=== PATIENT | male | born 1995 | race African-American/Black ===

== ENCOUNTER 2025-01-13 23:11 | Emergency (ER) | payer SELFPAY ==
--- NOTE | ~2025-01-13 | XR_ITS ---
Portable chest x-ray Comparison: None Clinical History: Shortness of breath Findings: Lungs are clear, without focal consolidation or pleural effusion. Cardiomediastinal silho uette is unremarkable. Bones and soft tissues are unremarkable. Impression: Normal chest. Reviewed, dictated and finalized at location . Impression: Normal chest.
[2025-01-13 23:21] VITALS: BP 133/98; PULSE 90; RESP 13; O2SAT 100
--- NOTE | 2025-01-13 23:23 | ED_ITS ---
HPI - General Adult General Chief complaint: Unspecified Stated complaint: SOB, tight in my throat. Time Seen by Provider: 01/13/25 23:19 Source: patient Mode of arrival: ambulatory Limitations: no limitations History of Present Illness HPI narrative: This is a 29-year-old male who presents to the ED for chief complaint of shortness of breath beginning about 2 hours prior to arrival. Patient states that it feels tight in his throat which was concerning to him. States it feels like his throat is closing. Denies any rash or history of allergies. Endorses chest tightness does central chest and pleuritic pain with breathing. Denies recent illness. Denies fevers, chills, leg swelling, palpitations, recent surgery or hospitalization. Denies any other medical history. Related Data Allergies Allergy/AdvReac Type Severity Reaction Status Date / Time No Known Allergies Allergy Verified 01/13/25 23:29 Review of Systems 2 Review of Systems: All systems as dictated in HPI Exam 2 Narrative: GENERAL: Well-appearing, well-nourished, and in no acute distress. HEAD: Normocephalic, atraumatic. EYES: PERRLA and EOMI. ENT: Nares clear, no rhinorrhea or epistaxis. Mucous membranes moist. Oropharynx without tonsillar hypertrophy exudate or other lesions. NECK: Supple. No adenopathy or masses. CHEST: No respiratory distress. Clear to auscultation. No wheezes rales or rhonchi HEART: Regular rate and rhythm. No murmur heard. Normal peripheral pulses. ABDOMEN: Soft, nontender, nondistended, normal active bowel sounds. MSK: Normal range of motion. No edema. SKIN: Warm, dry, no rash. NEURO: Alert and oriented x4. No focal deficits. PSYCH: Normal mood and affect. Course Vital Signs Vital signs: Vital Signs Temperature 98.1 F 01/13/25 23:26 Pulse Rate 86 01/13/25 23:26 Respiratory Rate 16 01/13/25 23:26 Blood Pressure 133/98 H 01/13/25 23:26 Pulse Oximetry 100 01/13/25 23:26 Oxygen Delivery Room Air 01/13/25 23:26 Temperature 98.1 F 01/13/25 23:26 Pulse Rate 86 01/13/25 23:26 Respiratory Rate 16 01/13/25 23:26 Blood Pressure 133/98 H 01/13/25 23:26 Pulse Oximetry 100 01/13/25 23:26 Oxygen Delivery Room Air 01/13/25 23:26 Medical Decision Making MDM Narrative Medical decision making narrative: This is a 29-year-old male who presents to the ED for chief complaint of shortness of breath, cough and chest tightness. Vitals are normal. Physical exam is benign. Lab work lab work is unremarkable. EKG shows normal sinus rhythm. Chest x-ray shows no acute cardiopulmonary findings. Presentation most likely consistent with bronchitis versus pleurisy. Rx for Medrol Dosepak albuterol prescription given. Encouraged to take ibuprofen every 6 hours as needed for pain control. Patient will be discharged in stable condition. Supportive measures discussed and return precautions given. Patient is understanding and agreeable with plan for discharge with PCP follow-up. Vital Signs Vital Signs: Vital Signs Temperature 98.1 F 01/13/25 23:26 Pulse Rate 86 01/13/25 23:26 Respiratory Rate 16 01/13/25 23:26 Blood Pressure 133/98 H 01/13/25 23:26 Pulse Oximetry 100 01/13/25 23:26 Oxygen Delivery Room Air 01/13/25 23:26 Temperature 98.1 F 01/13/25 23:26 Pulse Rate 86 01/13/25 23:26 Respiratory Rate 16 01/13/25 23:26 Blood Pressure 133/98 H 01/13/25 23:26 Pulse Oximetry 100 01/13/25 23:26 Oxygen Delivery Room Air 01/13/25 23:26 Lab Data 01/13/25 23:51 01/13/25 23:51 Labs: Lab Results 01/13/25 Range/Units 23:51 WBC 6.1 (4.5-10.0) K/mm3 RBC 5.09 (4.6-6.20) M/mm3 Hgb 14.3 (14.0-18.0) g/dL Hct 42.7 (42.0-52.0) % MCV 83.9 (80-100) fl MCH 28.1 (26-34) pg MCHC 33.5 (32-36) g/dl RDW 13.1 (11.5-14.5) % Plt Count 321 (150-375) k/mm3 MPV 9.3 (7.4-10.4) fl Immature Gran % (Auto) 0.5 (0-0.5) % Neut % (Auto) 58.0 (45.5-73.1) % Lymph % (Auto) 31.3 (18.3-44.2) % Nelson % (Auto) 6.9 (2.6-8.5) % Eos % (Auto) 2.6 (0-4.4) % Baso % (Auto) 0.7 (0.2-1.2) % Lymph # (Auto) 1.91 (0.9-3.2) K/mm3 Nelson # (Auto) 0.4 (0.1-0.6) K/mm3 Eos # (Auto) 0.2 (0-0.3) K/mm3 Baso # (Auto) 0.0 (0.0-0.1) K/mm3 Abs Immat Gran (auto) 0.03 (0.00-0.031) K/mm3 Absolute Neuts (auto) 3.5 (1.3-6.7) K/mm3 Absolute Nucleated RBC 0.000 (0.0-0.012) K/mm3 Nucleated RBC % 0.0 (0.0-0.2) % Sodium 140 (137-145) mmol/L Potassium 3.6 (3.4-5.0) mmol/L Chloride 101 (98-107) mmol/L Carbon Dioxide 26 (22-30) mmol/L Anion Gap 13 H (4-12) mmol/L BUN 10 (9-20) mg/dL Creatinine 0.94 (0.7-1.3) mg/dL Estim Creat Clear Calc 89 ml/min Estimated GFR > 60 (59 - ) Glucose 86 (65-110) mg/dL Calcium 9.5 (8.4-10.2) mg/dL Total Bilirubin 0.5 (0.2-1.3) mg/dL AST 26 (17-59) U/L ALT 19 (6-50) U/L Alkaline Phosphatase 79 (38-126) U/L Total Protein 8.0 (6.3-8.2) g/dL Albumin 4.7 (3.5-5.1) g/dL ECG Data EKG #1: ECG completion date: 01/13/25 ECG completion time: 23:50 Prior ECG tracings: not available for review Interpretation: Sinus rhythm Rate 83 QTC normal Benign early repolarization noted No acute ischemic findings Discharge Plan Discharge Clinical Impression: Bronchitis Patient Disposition: Home, Self-Care Condition: Stable Instructions: Antibiotic Form Additional Instructions: Exam and imaging today are reassuring. This is probably more related to bronchitis. Please take steroid pack and albuterol inhaler as needed. Follow- up with PCP on this issue. If you have any new or worsening symptoms please return to the ER for further evaluation. Patient Language: Ivorian Prescriptions: New methylprednisolone [Medrol (Jurgen)] 4 mg tablets,dose pack See Rx Instructions .ROUTE .COMPLEX Qty: 21 0RF Rx Instructions: for 6 days albuterol sulfate 90 mcg/actuation aerosol powdr breath activated 2 inh inhalation Q4-6H PRN (Reason: shortness of breath or wheezing) Qty: 1 0RF Follow-up/Referrals: PHYSIC[facility] [Primary Care Provider] - Time of Disposition: 00:42
--- NOTE | 2025-01-13 23:25 | ECG_ITS ---
Test Date: 2025-01-13 23:50:32 Measurements Intervals [place] Rate: 83 P: 69 AR: 168 QRS: 81 QRSD: 101 T: 47 QT: 366 QTc: 432 Interpretive Statements SINUS RHYTHM BORDERLINE T WAVE ABNORMALITY- INFERIOR LEADS BASELINE ARTIFACT- I, II, III, AVR, AVF, V1-V6 BORDERLINE ECG No previous ECG available for comparison Electronically Signed On 01-14-2025 06:22:51 CDT by Charli Cruz D.O.
[2025-01-13 23:26] VITALS: BP 133/98; PULSE 86; RESP 16; TEMP 36.7; O2SAT 100
[2025-01-13 23:32] VITALS: BP 133/85; PULSE 80; RESP 17
--- OUTSIDE RECORDS SUMMARY | 2025-01-13 23:35 | XMS_ITS | Referral Summary ---
Author Organization [facility] Address [address] [place] [address] Care Team Providers Care Bung Driver Name Role Phone No, Physician Primary Care Provider [phone] Encounters Date Type Department Care Team Description 01/01/2025 Results Follow-Up [facility] Emergency Department [address] [place] [phone] Jerome Ruiz RN 01/01/2025 8:21 AM CDT - 01/01/2025 9:37 AM CDT Emergency [facility] Emergency Department [address] [place] [phone] Sean Gonzales MD Skin irritation (Primary Dx); Acute maxillary sinusitis, recurrence not specified Discharge Disposition: Discharge to home or self care 12/30/2024 Results Follow-Up [facility] Emergency Department [address] [place] [phone] Jerome Ruiz RN 12/30/2024 2:22 AM CDT - 12/30/2024 7:44 AM CDT Emergency [facility] Emergency Department [address] [place] [phone] Discharge Disposition: Left without being seen 12/21/2024 9:06 AM CDT - 12/21/2024 11:05 AM CDT Emergency [facility] Emergency Department [address] [place] [phone] Constipation, unspecified constipation type (Primary Dx); Epigastric pain Discharge Disposition: Discharge to home or self care from Last 3 Months Allergies No known active allergies Medications acetaminophen (TYLENOL) 325 mg tablet Take 650 mg by mouth every 4 (four) hours as needed 7 Active albuterol HFA (PROVENTIL HFA,VENTOLIN HFA,PROAIR HFA) 90 mcg/actuation inhaler Inhale 2 puffs every 4 (four) hours as needed for wheezing 18 g 3 Active benzonatate (TESSALON) 100 mg capsuleIndicati ons:Cough Take 1 capsule (100 mg total) by mouth 3 (three) times a day as needed for cough 15 capsule 3 Active ibuprofen (ADVIL,MOTRIN) 600 mg tabletIndicatio ns:Pain Take 1 tablet (600 mg total) by mouth every 6 (six) hours as needed for pain 20 tablet 3 Active cetirizine (ZyrTEC) 10 mg tabletIndicatio ns:Allergic Rhinitis Take 1 tablet (10 mg total) by mouth daily 30 tablet 3 Active famotidine (PEPCID) 20 mg tablet Take 1 tablet (20 mg total) by mouth 2 (two) times a day 60 tablet 5 01/21/20 25 Active magnesium citrate solution Take 296 mL by mouth once for 1 dose 296 mL 5 Active cephalexin (KEFLEX) 500 mg capsule Take 1 capsule (500 mg total) by mouth 3 (three) times a day for 5 days 15 capsule 5 01/07/20 25 Active Problems Problem Noted Date Diagnosed Date Chronic sinusitis 07/24/2023 Chronic intractable headache 07/24/2023 Neurosyphilis in adult 12/27/2021 Assessment & Plan (12/31/2021 1:38 PM CDT): Presenting with persistent generalized headache, photophobia and blurred vision. Symptoms reportedly stable since prior admissions at OSH in November-December 2021 where he was incompletely treated with IV penicillin and left AMA x2. - RPR positive, 1:32. 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 Symptoms reportedly stable since prior admissions at OSH in November-December 2021 where he was incompletely treated with IV penicillin and left AMA x2. - RPR positive, 1:32. HIV negative - IV PCN G 4mil units q4h discontinued per ID, ordered first dose of 2.4 million units Bicillin. 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 Symptoms reportedly stable since prior admissions at OSH in November-December 2021 where he was incompletely treated with IV penicillin and left AMA x2. - RPR positive, 1:32. HIV negative - continue IV PCN G 4mil units q4h x 14 days - Counseled on importance of staying inpatient to complete treatment. Not candidate for OPAT as he is homeless and active history of illicit drug abuse. - ID consulted-- LP today, if patient leaves AMA give doxycycline 200 mg BID for 28 days, labs and Tdap vaccine ordered - Ophthalmology consult-- no signs of ocular syphilis on exam Assessment & Plan (12/28/2021 4:17 PM CDT): Presenting with persistent generalized headache, photophobia and blurred vision. Symptoms reportedly stable since prior admissions at OSH in November-December 2021 where he was incompletely treated with IV penicillin and left AMA x2. - RPR positive, 1:32. HIV negative - continue IV PCN G 4mil units q4h - Counseled on importance of staying inpatient to complete treatment. Not candidate for OPAT as he is homeless and active history of illicit drug abuse. - ID consulted-- LP ordered, if patient leaves AMA give doxycycline 200 mg BID for 28 days, labs ordered - Ophthalmology consult-- no signs of ocular syphilis on exam Polysubstance dependence inc luding opioid type drug without complication, episodic abuse 12/27/2021 Assessment & Plan (12/31/2021 1:39 PM CDT): History of fentanyl and methamphetamine use. He denies history of IVDU. States that he snorts fentanyl. Reported last use ~2 days prior to admission - UDS positive for amphetamine, cocaine, and fentanyl - Psych consult for withdrawal symptoms - Suboxone 8- q12h, SW for EPICC consult-- has appointment for suboxone at [facility] today, CM set up transportation - clonidine, atarax, loperamide prn Assessment & Plan (12/30/2021 5:25 PM CDT): History of fentanyl and methamphetamine use. He denies history of IVDU. States that he snorts fentanyl. Reported last use ~2 days prior to admission - UDS positive for amphetamine, cocaine, and fentanyl - Psych consult for withdrawal symptoms - Suboxone 8- q12h, SW for EPICC consult-- has appointment for suboxone at [facility] tomorrow morning, CM planning to set up transportation - clonidine, atarax, loperamide prn Assessment & Plan (12/29/2021 3:18 PM CDT): History of fentanyl and methamphetamine use. He denies history of IVDU. States that he snorts fentanyl. Reported last use ~2 days prior to admission - UDS positive for amphetamine, cocaine, and fentanyl - Psych consult for withdrawal symptoms - Suboxone 8- q12h, Narcan intranasal spray on discharge, SW for EPICC consult - clonidine, atarax, loperamide prn Assessment & Plan (12/28/2021 4:22 PM CDT): History of fentanyl and methamphetamine use. He denies history of IVDU. States that he snorts fentanyl. Reported last use ~2 days prior to admission - UDS positive for amphetamine, cocaine, and fentanyl - Psych consult for withdrawal symptoms - Suboxone 8- q12h, [facility] consult closer to discharge, Narcan intranasal spray on discharge - clonidine, atarax, loperamide prn Microcytic anemia 12/27/2021 Assessment & Plan (12/31/2021 1:38 PM CDT): - Hgb 11.1, MCV 80.4 on admission - Trend CBC, transfuse for Hgb <7 Assessment & Plan (12/30/2021 5:20 PM CDT): - Hgb 11.1, MCV 80.4 on admission - Trend CBC, transfuse for Hgb <7 Assessment & Plan (12/29/2021 3:16 PM CDT): - Hgb 11.1, MCV 80.4 on admission - Trend CBC, transfuse for Hgb <7 Assessment & Plan (12/28/2021 4:14 PM CDT): - Hgb 11.1, MCV 80.4 - Trend CBC, transfuse for Hgb <7 Diarrhea 12/27/2021 Assessment & Plan (12/31/2021 1:38 PM CDT): Patient reportedfrequent diarrhea on admission. Likely symptom of opiate withdrawal. Resolved. - bowel regimen started for reported constipation - stool culture and O&P (states worms in stool) pending Assessment & Plan (12/30/2021 5:20 PM CDT): Patient reportedfrequent diarrhea on admission. Likely symptom of opiate withdrawal. Resolved. - Patient reports no BM since arrival- bowel regimen started - stool culture, O&P (states worms in stool) Assessment & Plan (12/29/2021 3:16 PM CDT): Patient reporting frequent diarrhea. Likely symptom of opiate withdrawal, but also at risk of c diff given recent exposure to IV antibiotics. - Patient reports no BM since arrival - Check C diff, stool culture, O&P (states worms in stool) - If infectious studies negative, can treat symptomatically if needed Assessment & Plan (12/27/2021 8:47 PM CDT): Patient reporting frequent diarrhea. Likely symptom of opiate withdrawal, but also at risk of c diff given recent exposure to IV antibiotics. 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 Assessment & Plan (12/31/2021 1:37 PM CDT): Complains of having worms in his stool - stool O&P pending, per nursing no worms noted while sending sample Assessment & Plan (12/30/2021 5:18 PM CDT): Complains of having worms in his stool - Check stool O&P - can consider psychiatry consult if persists Assessment & Plan (12/29/2021 3:15 PM CDT): Complains of having worms in his stool - Check stool O&P - can consider psychiatry consult if persists Assessment & Plan (12/27/2021 8:47 PM CDT): Complains of having worms in his stool - Check stool O&P - can consider psychiatry consult if persists Homelessness 12/27/2021 Assessment & Plan (12/31/2021 1:38 PM CDT): - consult, appreciate assistance Assessment & Plan (12/30/2021 5:20 PM CDT): - consult, appreciate assistance Assessment & Plan (12/29/2021 3:16 PM CDT): - SW consult, appreciate assistance Assessment & Plan (12/27/2021 8:48 PM CDT): - consult, appreciate assistance Fentanyl use disorder, severe, dependence 2021 Methamphetamine use disorder, moderate Dental abscess 03/06/2017 Facial cellulitis 03/06/2017 Immunizations Immunization Administration Dates Next Due DTP 03/26/1996 Hep B, Adolescent or Pediatric 07/15/1997 Polio, Unspecified 03/26/1996 Tdap 12/29/2021,05/30/2009 Social History Tobacco Use Types Packs/Day Years Used Date Smoking Tobacco: Every Day Cigarettes Smokeless Tobacco: Current Tobacco Cessation:Ready to Q uit: No AUDIT-C Answer Date Recorded Q1: How often do you have a drink containing alc ohol? Monthly or less 12/27/2021 Average Number of Drinks Not on file 022 Frequency of Binge Drinking Not on file 12/09 Personal Safety Answer Date Recorded Have you ever been in or are you currently in a harmful physical or emotional relationship or is someone making you feel afraid or unsafe? Denies 01/01/2025 Sex and Gender Information Value Date Recorded Sex Assigned at Not on file Legal Sex Male 8:55 AM [employer] Gender Identity Not on file Sexual Orientation Not on file Last Filed Vital Signs Vital Sign Reading Time Taken Comments Blood Pressure 125/86 01/01/2025 7:11 AM CDT Pulse 93 01/01/2025 7:11 AM CDT Temperature 36.9 C (98.4 F) 01/01/2025 7:11 AM CDT Respiratory Rate 19 01/01/2025 7:11 AM CDT Oxygen Saturation 98% 01/01/2025 7:11 AM CDT Inhaled Oxygen Concentration - - Weight 68.9 kg (152 lb) 01/01/2025 7:11 AM CDT Height 180.3 cm (5' 11 ) 01/01/2025 7:11 AM CDT Body Mass Index 21.2 01/01/2025 7:11 AM CDT Plan of Treatment Not on file Procedures Procedure Name Priority Date/Time Associated Diagnosis Comments DIFFERENTIAL AUTO STAT 01/01/2025 9:0 2 AM CDT CBC WITH AUTO DIFFERENTIAL STAT 01/01/2025 9:02 AM CDT ECG 12-LEAD STAT 12/30/2024 3:33 AM CDT XR CHEST PA LATERAL 2 VIEWS ED 12/30/2024 2:57 AM CDT XR KUB ED 12/21/2024 10:21 AM CDT EGFR STAT 12/21/2024 9:19 AM CDT DIFFERENTIAL AUTO STAT 12/21/2024 9:1 9 AM CDT COMPREHENSIVE METABOLIC PANEL STAT 12/21/2024 9:19 AM CDT CBC WITH AUTO DIFFERENTIAL STAT 12/21/2024 9:19 AM CDT HEPATITIS PANEL, ACUTE Routine 6:56 AM CDT from Last 3 Months or Most Recently Relevant to Health Maintenance Results * Differential, auto (01/01/2025 9:02 AM CDT) Pathologist [facility] Neutrophil abs 2.6 1.5 - 6.5 K/cumm Imm gran abs 0.0 0.0 - 0.1 K/cumm [facility] Lymphocyte abs 1.2 0.8 - 3.3 K/cumm [facility] Monocyte abs 0.6 0.2 - 0.8 K/cumm [facility] Eosinophil abs 0.2 0.0 - 0.5 K/cumm [facility] Basophil abs 0.0 0.0 - 0.1 K/cumm [facility] Neutrophil pct 55.9 % [facility] Comment: Interpretive Data Percent cell count reference ranges are not reported, since discordance with absolute values may lead to misinterpretation of CBC data. Current Interpretive Data was last revised on 2018. Imm gran pct 0.2 % [facility] Comment: Interpretive Data Percent cell count reference ranges are not reported, since discordance with absolute values may lead to misinterpretation of CBC data. Current Interpretive Data was last revised on 2018. Lymphocyte pct 25.8 % [facility] Comment: Interpretive Data Percent cell count reference ranges are not reported, since discordance with absolute values may lead to misinterpretation of CBC data. Current Interpretive Data was last revised on 2018. Monocyte pct 13.4 % [facility] Comment: Interpretive Data Percent cell count reference ranges are not reported, since discordance with absolute values may lead to misinterpretation of CBC data. Current Interpretive Data was last revised on 2018. Eosinophil pct 4.3 % [facility] Comment: Interpretive Data Percent cell count reference ranges are not reported, since discordance with absolute values may lead to misinterpretation of CBC data. Current Interpretive Data was last revised on 2018. Basophil pct 0.4 % [facility] Comment: Interpretive Data Percent cell count reference ranges are not reported, since discordance with absolute values may lead to misinterpretation of CBC data. Current Interpretive Data was last revised on 2018. Blood 01/01/2025 9:02 AM CDT 01/01/2025 9:08 AM CDT us Sean Gonzales MD LAB BLOOD ORDERABLES Final Res ult [facility] Department [place] [address] * (ABNORMAL) CBC with auto differential (01/01/2025 9:02 AM CDT) WBC 4.6 3.8 - 9.9 K/cumm Hgb 13.1 13.0 - 17.5 g/dL [facility] Hct 38.2(L) 38.9 - 50.3 % [facility] Plt 274 150 - 400 K/cumm [facility] MPV 10.1 9.1 - 12.3 fL [facility] RBC 4.64 4.30 - 5.80 M/cumm [facility] MCV 82.3 81.3 - 96.4 fL [facility] MCH 28.2 27.1 - 33.3 pg [facility] MCHC 34.3 32.3 - 35.7 g/dL [facility] RDW CV 13.7 11.1 - 14.9 % [facility] RDW SD 40.6 35.7 - 48.1 fL [facility] NRBC abs 0.00 0.00 - 0.01 K/cumm [facility] Blood 01/01/2025 9:02 AM CDT 01/01/2025 9:08 AM CDT us Sean Gonzales MD LAB BLOOD ORDERABLES Final Res ult Performing Organization Address [facility] Co de Phone Number [facility] Department [place] [address] * ECG 12-LEAD (12/30/2024 3:33 AM CDT) Narrative [facility] - 12/30/2024 3:33 AM CDT Bhavani Leigh MD 12/30/2024 3:33 AM ECG 12 lead Date/Time: 12/30/2024 3:33 AM Performed by: Bhavani Leigh MD Authorized by: Bhavani Leigh MD Rate: ECG rate: 99 ECG rate assessment: normal Rhythm: Rhythm: sinus rhythm Ectopy: Ectopy: none QRS: QRS axis: Normal QRS intervals: Normal Conduction: Conduction: normal ST segments: ST segments: Normal T waves: T waves: non-specific Previous ECG: Previous ECG: Compared to current Similarity: No change Interpretation: Interpretation: No significant change Recommended Follow-up: Recommended follow up: further workup in the ED us Bhavani Leigh MD ECG ORDERABLES Final Resul t Performing Organization Address [facility] Co de Phone Number [facility] * XR Chest Pa Lateral 2 Views (12/30/2024 2:57 AM CDT) Anatomical Region Laterality Modality Body, Chest N/A Computed Radiogr aphy 12/30/2024 4:15 AM CDT Impressions 12/30/2024 8:31 AM CDT Comparison made to chest radiograph 07/05/2023. Lungs are clear. No pleural effusion or pneumothorax. Normal cardiomediastinal silhouette. Dictated by: Maximilian Shepherd MD The radiology attending physician has personally reviewed this study, and had reviewed and/or edited this written report and agrees with it. Electronically signed by: Jone Jones M.D. Narrative 12/30/2024 8:31 AM CDT EXAMINATION: 2 view chest radiograph Procedure Note Jone Jones MD - 12/30/2024 EXAMINATION: 2 view chest radiograph IMPRESSION: Comparison made to chest radiograph 07/05/2023. Lungs are clear. No pleural effusion or pneumothorax. Normal cardiomediastinal silhouette. Dictated by: Maximilian Shepherd MD The radiology attending physician has personally reviewed this study, and had reviewed and/or edited this written report and agrees with it. Electronically signed by: Jone Jones M.D. us Ashlee Pedroza MD IMG XR PROCEDURES Final Res ult * XR Kub (Abd 1 View) (12/21/2024 10:21 AM CDT) Anatomical Region Laterality Modality Body, Abdomen N/A Computed Radiogr aphy 12/21/2024 10:3 7 AM CDT Impressions 12/21/2024 10:37 AM CDT The bowel gas pattern is normal. Imaged lung bases are clear. Electronically signed by: Ermelinda Freire M.D. Narrative 12/21/2024 10:37 AM CDT EXAMINATION: Abdomen, one view. HISTORY: Constipation COMPARISON: None Procedure Note Ermelinda Freire MD - 12/21/2024 EXAMINATION: Abdomen, one view. HISTORY: Constipation COMPARISON: None IMPRESSION: The bowel gas pattern is normal. Imaged lung bases are clear. Electronically signed by: Ermelinda Freire M.D. us hCuck Calvert NP IMG XR PROCEDURES Final R esult * eGFR (12/21/2024 9:19 AM CDT) eGFR >90 >=60 mL/min/1. 73 m2 Comment: Interpretive Data Reference Interval Normal >/= 90 mL/min/1.73m2 Mildly decreased* 60 - 89 mL/min/1.73m2 Mildly to moderately decreased 45 - 59 mL/min/1.73m2 Moderately to severely decreased 30 - 44 mL/min/1.73m2 Severely decreased 15 - 29 mL/min/1.73m2 Kidney Failure < 15 mL/min/1.73m2 *Relative to young adult level Estimated glomerular filtration rate is determined by the 2020 CKD-EPI equation recommended by the National Kidney [employer] (A Unifying Approach to GFR Estimation: Recommendations of the NKF-ASK Task Force on Reassessing the Inclusion of Race in Diagnosing Kidney Disease, JASN 202). The CKD-EPI equation should not be used for patients with unstable renal function and has not been validated in children and those over 70. Current interpretive data was last reviewed 2021. Blood 12/21/2024 9:19 AM CDT 12/21/2024 9:34 AM CDT Chuck Calvert NP LAB BLOOD ORDERABLES Akiko bdeoya Result [facility] Department [place] [address] * Differential, auto (12/21/2024 9:19 AM CDT) Pathologist [facility] Neutrophil abs 2.9 1.5 - 6.5 K/cumm Imm gran abs 0.0 0.0 - 0.1 K/cumm [facility] Lymphocyte abs 1.3 0.8 - 3.3 K/cumm [facility] Monocyte abs 0.6 0.2 - 0.8 K/cumm [facility] Eosinophil abs 0.3 0.0 - 0.5 K/cumm [facility] Basophil abs 0.0 0.0 - 0.1 K/cumm [facility] Neutrophil pct 55.9 % [facility] Comment: Interpretive Data Percent cell count reference ranges are not reported, since discordance with absolute values may lead to misinterpretation of CBC data. Current Interpretive Data was last revised on 2018. Imm gran pct 0.2 % [facility] Comment: Interpretive Data Percent cell count reference ranges are not reported, since discordance with absolute values may lead to misinterpretation of CBC data. Current Interpretive Data was last revised on 2018. Lymphocyte pct 25.5 % [facility] Comment: Interpretive Data Percent cell count reference ranges are not reported, since discordance with absolute values may lead to misinterpretation of CBC data. Current Interpretive Data was last revised on 2018. Monocyte pct 12.4 % [facility] Comment: Interpretive Data Percent cell count reference ranges are not reported, since discordance with absolute values may lead to misinterpretation of CBC data. Current Interpretive Data was last revised on 2018. Eosinophil pct 5.2 % [facility] Comment: Interpretive Data Percent cell count reference ranges are not reported, since discordance with absolute values may lead to misinterpretation of CBC data. Current Interpretive Data was last revised on 2018. Basophil pct 0.8 % [facility] Comment: Interpretive Data Percent cell count reference ranges are not reported, since discordance with absolute values may lead to misinterpretation of CBC data. Current Interpretive Data was last revised on 2018. Blood 12/21/2024 9:19 AM CDT 12/21/2024 9:34 AM CDT us Chuck Calvert NP LAB BLOOD ORDERABLES Akiko l Result [facility] Department [place] [address] * CBC with auto differential (12/21/2024 9:19 AM CDT) WBC 5.2 3.8 - 9.9 K/cumm Hgb 13.1 13.0 - 17.5 g/dL [facility] Hct 38.9 38.9 - 50.3 % [facility] Plt 306 150 - 400 K/cumm [facility] MPV 9.9 9.1 - 12.3 fL [facility] RBC 4.75 4.30 - 5.80 M/cumm [facility] MCV 81.9 81.3 - 96.4 fL [facility] MCH 27.6 27.1 - 33.3 pg [facility] MCHC 33.7 32.3 - 35.7 g/dL [facility] RDW CV 13.2 11.1 - 14.9 % [facility] RDW SD 39.4 35.7 - 48.1 fL [facility] NRBC abs 0.00 0.00 - 0.01 K/cumm [facility] Blood 12/21/2024 9:19 AM CDT 12/21/2024 9:34 AM CDT us Chuck Calvert NP LAB BLOOD ORDERABLES Akiko bedoya Result [facility] Department [place] [address] * Comprehensive metabolic panel (12/21/2024 9:19 AM CDT) Sodium 142 135 - 145 mmol/L Potassium, pl 3.5 3.3 - 4.9 mmol/L [facility] Chloride 100 97 - 110 mmol/L [facility] CO2 31 22 - 32 mmol/L [facility] Anion gap 11 2 - 15 mmol/L [facility] BUN 10 6 - 25 mg/dL [facility] Creatinine 1.10 0.80 - 1.30 mg/dL [facility] Glucose 97 70 - 199 mg/dL [facility] Comment: Interpretive Data Fasting glucose >/= 126 mg/dl is diagnostic for diabetes. Fasting is defined as no caloric intake for at least 8 hours. Fasting glucose between 100 mg/dl to 125 mg/dl is diagnostic of prediabetes. In a patient with classic symptoms of hyperglycemia or hyperglycemic crisis, a random glucose >/= 200 mg/dl is diagnostic for diabetes. In the absence of unequivocal hyperglycemia, results should be confirmed by repeat testing. The classification and Diagnosis of Diabetes Diabetes Care 2021; 46: S19-S40. Current interpretive data was last revised 2022. Calcium 10.0 8.5 - 10.3 mg/dL [facility] Bilirubin, total 0.9 0.1 - 1.2 mg/dL [facility] Protein, pl 8.3 6.5 - 8.5 g/dL [facility] Albumin 4.8 3.5 - 5.0 g/dL [facility] Alk phos 86 40 - 130 Units/L [facility] ALT 22 7 - 55 Units/L [facility] AST 38 10 - 50 Units/L [facility] Blood 12/21/2024 9:19 AM CDT 12/21/2024 9:34 AM CDT Chuck Calvert NP LAB BLOOD ORDERABLES Akiko l Result Performing Organization Address [facility]/ZIP Co de Phone Number [facility] Department [place] [address] * Hepatitis panel, acute (12/28/2021 6:56 AM CDT) Hep A IgM Nonreactive Nonreactive [facility] Comment: Interpretive Data: If Hep A IgM Ab is reported as Equivocal, a new sample should be drawn in two weeks for testing. Current interpretive data was last revised on 19. Hep B core IgM Nonreactive Nonreactive [facility] Comment: Interpretive Data If HepB Core IgM Ab is reported as Equivocal, a new sample should be drawn in two weeks for testing. Current interpretive data was last revised on 19. Hep C Ab Nonreactive Nonreactive [facility] Comment:Antibodies to HCV no t detected. Does NOT exclude the possibility of recent exposure to HCV. HepBsAg Nonreactive Nonreactive [facility] Blood 12/28/2021 6:56 AM CDT 12/28/2021 7:02 AM CDT us Jerome Arredondo MD LAB MICROBIOL OGY - GENERAL ORDERABLES Edited Result - Final Performing Organization Address City/[facility]/ZIP Co de Phone Number [facility] Department [place] [address] from Last 3 Months or Most Recently Relevant to Health Maintenance Advance Directives For more information, please contact: [phone] * Full Code (Latest Code Status on File) Date Activated Date Inactivated Comments 12/28/2021 1:26 AM 12/31/2021 3:18 PM Care Teams Bung Driver Relationship Specialty Start Date End Date No, Physician PCP - General 12/27/21
--- OUTSIDE RECORDS SUMMARY | 2025-01-13 23:35 | XMS_ITS | Clinical Summary ---
Author Organization [facility] Address [address] [place] [address] Care Team Providers Care Integration Technician Name Role Phone No, Physician Primary Care Provider [phone] Allergies No known active allergies Medications acetaminophen [...] symptoms - Suboxone 8- q12h, SW for EPIC consult-- [facility] sub[facility]one at [facility] symptoms - Suboxone 8- q12h, SW for EPIC consult-- has appointment [facility] suboxone at [facility] [...] for withdrawal symptoms - Suboxone 8- q12h, EPICC consult closer to discharge, Narcan intranasal spray [...] & Plan (12/31/2021 1:38 PM CDT): - SW consult, appreciate assistance Assessment & Plan (12/30/2021 5:20 PM CDT): - SW consult, appreciate assistance Assessment & Plan (12/29/2021 3:16 PM CDT): - SW consult, appreciate assistance Assessment & Plan (12/27/2021 8:48 PM CDT): - SW consult, appreciate assistance Fentanyl use disorder, severe, dependence 2021 Methamphetamine use disorder, moderate Dental abscess 03/06/2017 Facial cellulitis 03/06/2017 Encounters Date Type Department Care Team Description 01/01/2025 8:21 AM CDT - 01/01/2025 9:37 AM CDT Emergency [facility] Emergency Department [address] [place] [address] Sean Gonzales MD Skin irritation (Primary Dx); Acute maxillary sinusitis, recurrence not specified Discharge Disposition: Discharge to home or self care 01/01/2025 Results Follow-Up [facility] Emergency Department [address] [place] [address] Jerome Ruiz RN 12/30/2024 2:22 AM CDT - 12/30/2024 7:44 AM CDT Emergency [facility] Emergency Department [address] [place] [address] Discharge Disposition: Left without being seen 12/30/2024 Results Follow-Up [facility] Emergency Department [address] [place] [address] Jerome Ruiz RN 12/21/2024 9:06 AM CDT - 12/21/2024 11:05 AM CDT Emergency [facility] Emergency Department [address] [place] [address] Constipation, unspecified constipation type (Primary Dx); Epigastric pain Discharge Disposition: Discharge to home or self care from Last 3 Months Immunizations Immunization Administration Dates Next Due DTP 03/26/1996 Hep B, Adolescent or Pediatric 07/15/1997 Polio, Unspecified 03/26/1996 Tdap 12/29/2021,05/30/2009 Medical History Medical History Date Comments Opiate abuse, episodic (HCC) Methamphetamine use (HCC) Neurosyphilis Social History Tobacco Use Types Packs/Day Years [...] on file Legal Sex Male 8:55 AM 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 Gender Identity Not on file Sexual Orientation Not on file Obstetrics History Last Filed Vital Signs Vital Sign Reading [...] 01/01/2025 7:11 AM CDT Plan of Treatment Health Maintenance Due Date Last Done Comments Depression Screening 1994 Varicella Vaccines (1 of 2 - 13+ 2-dose series) 12/20/2007 Regular Well Visit/Exam 18-64 2012 Pneumococcal vaccine <65 (1 of 2 - PCV) 2013 Influenza Vaccine (#1) 2024 DTaP/Tdap/Td Vaccine (5 - Td or Tdap) 01/17/2032 01/16/2022, 12/29/2021, 05/30/2009, Additional history exists Hepatitis B Screening Completed 07/15/1997 Hepatitis C Screening Completed 12/28/2021 HPV Vaccines Aged Out No longer eligi ble based on patient's age to complete this topic Procedures Procedure Name Priority Date/Time Associated Diagnosis [...] * Differential, auto (01/01/2025 9:02 AM CDT) Neutrophil abs 2.6 1.5 - 6.5 K/cumm Imm gran abs 0.0 0.0 - 0.1 K/cumm [facility] Lymphocyte abs 1.2 0.8 - 3.3 K/cumm [facility] Monocyte abs 0.6 0.2 - 0.8 K/cumm [facility] Eosinophil abs 0.2 0.0 - 0.5 K/cumm [facility] Basophil abs 0.0 0.0 - 0.1 K/cumm [facility] Neutrophil pct 55.9 % [facility] Comment: Interpretive Data Percent cell count reference ranges are not reported, since discordance with absolute values may lead to misinterpretation of CBC data. Current Interpretive Data was last revised on 2018. Imm gran pct 0.2 % [facility] Comment: Interpretive Data Percent cell count reference ranges are not reported, since discordance with absolute values may lead to misinterpretation of CBC data. Current Interpretive Data was last revised on 2018. Lymphocyte pct 25.8 % [facility] Comment: Interpretive Data Percent cell count reference ranges are not reported, since discordance with absolute values may lead to misinterpretation of CBC data. Current Interpretive Data was last revised on 2018. Monocyte pct 13.4 % [facility] Comment: Interpretive Data Percent cell count reference ranges are not reported, since discordance with absolute values may lead to misinterpretation of CBC data. Current Interpretive Data was last revised on 2018. Eosinophil pct 4.3 % [facility] Comment: Interpretive Data Percent cell count reference ranges are not reported, since discordance with absolute values may lead to misinterpretation of CBC data. Current Interpretive Data was last revised on 2018. Basophil pct 0.4 % [facility] Comment: Interpretive Data Percent cell count reference ranges are not reported, since discordance with absolute values may lead to misinterpretation of CBC data. Current Interpretive Data was last revised on 2018. Blood 01/01/2025 9:02 AM CDT 01/01/2025 9:08 AM CDT us Sean Gonzales MD LAB BLOOD ORDERABLES Final Res ult [facility] Department [place] [address] * (ABNORMAL) CBC with auto differential (01/01/2025 9:02 AM CDT) WBC 4.6 3.8 - 9.9 K/cumm Hgb 13.1 13.0 - 17.5 g/dL [facility] Hct 38.2(L) 38.9 - 50.3 % [facility] Plt 274 150 - 400 K/cumm [facility] MPV 10.1 9.1 - 12.3 fL [facility] RBC 4.64 4.30 - 5.80 M/cumm [facility] MCV 82.3 81.3 - 96.4 fL [facility] MCH 28.2 27.1 - 33.3 pg [facility] MCHC 34.3 32.3 - 35.7 g/dL [facility] RDW CV 13.7 11.1 - 14.9 % [facility] RDW SD 40.6 35.7 - 48.1 fL [facility] NRBC abs 0.00 0.00 - 0.01 K/cumm [facility] Blood 01/01/2025 9:02 AM CDT 01/01/2025 9:08 AM CDT us Sean Gonzales MD LAB BLOOD ORDERABLES Final Res ult [facility] Department [place] [address] * ECG 12-LEAD (12/30/2024 3:33 AM CDT) Narrative [facility] - 12/30/2024 3:33 AM CDT Bhavani Leigh [...] Leigh MD ECG ORDERABLES Final Resul t [facility] * XR Chest Pa Lateral 2 Views [...] Electronically signed by: Ermelinda Freire M.D. us Chuck Calvert NP IMG XR PROCEDURES Final R [...] NP LAB BLOOD ORDERABLES Akiko bedoya Result [facility] Department [place] [address] * Differential, auto (12/21/2024 9:19 AM CDT) Neutrophil abs 2.9 1.5 - 6.5 K/cumm Imm gran abs 0.0 0.0 - 0.1 K/cumm [facility] Lymphocyte abs 1.3 0.8 - 3.3 K/cumm [facility] Monocyte abs 0.6 0.2 - 0.8 K/cumm [facility] Eosinophil abs 0.3 0.0 - 0.5 K/cumm [facility] Basophil abs 0.0 0.0 - 0.1 K/cumm [facility] Neutrophil pct 55.9 % [facility] Comment: Interpretive Data Percent cell count reference ranges are not reported, since discordance with absolute values may lead to misinterpretation of CBC data. Current Interpretive Data was last revised on 2018. Imm gran pct 0.2 % [facility] Comment: Interpretive Data Percent cell count reference ranges are not reported, since discordance with absolute values may lead to misinterpretation of CBC data. Current Interpretive Data was last revised on 2018. Lymphocyte pct 25.5 % [facility] Comment: Interpretive Data Percent cell count reference ranges are not reported, since discordance with absolute values may lead to misinterpretation of CBC data. Current Interpretive Data was last revised on 2018. Monocyte pct 12.4 % [facility] Comment: Interpretive Data Percent cell count reference ranges are not reported, since discordance with absolute values may lead to misinterpretation of CBC data. Current Interpretive Data was last revised on 2018. Eosinophil pct 5.2 % [facility] Comment: Interpretive Data Percent cell count reference ranges are not reported, since discordance with absolute values may lead to misinterpretation of CBC data. Current Interpretive Data was last revised on 2018. Basophil pct 0.8 % [facility] Comment: Interpretive Data Percent cell count reference ranges are not reported, since discordance with absolute values may lead to misinterpretation of CBC data. Current Interpretive Data was last revised on 2018. Blood 12/21/2024 9:19 AM CDT 12/21/2024 9:34 AM CDT Chuck Jerome Calvert AUTOMOBILE MECHANIC RADIATOR LAB BLOOD ORDERABLES Akiko l Result Performing Organization Address [facility] de Phone Number [facility] Department [place] [address] * CBC with auto differential (12/21/2024 9:19 AM CDT) [facility] WBC 5.2 3.8 - 9.9 K/cumm Hgb 13.1 13.0 - 17.5 g/dL [facility] Hct 38.9 38.9 - 50.3 % [facility] Plt 306 150 - 400 K/cumm [facility] MPV 9.9 9.1 - 12.3 fL [facility] RBC 4.75 4.30 - 5.80 M/cumm [facility] MCV 81.9 81.3 - 96.4 fL [facility] MCH 27.6 27.1 - 33.3 pg [facility] MCHC 33.7 32.3 - 35.7 g/dL [facility] RDW CV 13.2 11.1 - 14.9 % [facility] RDW SD 39.4 35.7 - 48.1 fL [facility] NRBC abs 0.00 0.00 - 0.01 K/cumm [facility] Blood 12/21/2024 9:19 AM CDT 12/21/2024 9:34 AM CDT Chuck Calvert NP LAB BLOOD ORDERABLES Akiko l Result Performing Organization Address [facility] Co de Phone Number [facility] Department [place] [address] * Comprehensive metabolic panel (12/21/2024 9:19 AM CDT) [facility] Sodium 142 135 - 145 mmol/L Potassium, pl 3.5 3.3 - 4.9 mmol/L [facility] Chloride 100 97 - 110 mmol/L [facility] CO2 31 22 - 32 mmol/L [facility] Anion gap 11 2 - 15 mmol/L [facility] BUN 10 6 - 25 mg/dL [facility] Creatinine 1.10 0.80 - 1.30 mg/dL [facility] Glucose 97 70 - 199 mg/dL [facility] Comment: Interpretive Data Fasting glucose >/= 126 [...] classification and Diagnosis of Diabetes Diabetes Care 202; 46: S19-S40. Current interpretive data was last revised 2022. Calcium 10.0 8.5 - 10.3 mg/dL [facility] Bilirubin, total 0.9 0.1 - 1.2 mg/dL [facility] Protein, pl 8.3 6.5 - 8.5 g/dL [facility] Albumin 4.8 3.5 - 5.0 g/dL [facility] Alk phos 86 40 - 130 Units/L [facility] ALT 22 7 - 55 Units/L [facility] AST 38 10 - 50 Units/L [facility] Blood 12/21/2024 9:19 AM CDT 12/21/2024 9:34 AM CDT Chuck Calvert NP LAB BLOOD ORDERABLES Akiko l Result [facility] Department [place] [address] * Hepatitis panel, acute (12/28/2021 6:56 AM CDT) Hep A IgM Nonreactive Nonreactive [facility] Comment: Interpretive Data: If Hep A IgM Ab is reported as Equivocal, a new sample should be drawn in two weeks for testing. Current interpretive data was last revised on 19. Hep B core IgM Nonreactive Nonreactive [facility] Comment: Interpretive Data If HepB Core IgM Ab is reported as Equivocal, a new sample should be drawn in two weeks for testing. Current interpretive data was last revised on 19. Hep C Ab Nonreactive Nonreactive [facility] Comment:Antibodies to HCV no t detected. Does NOT exclude the possibility of recent exposure to HCV. HepBsAg Nonreactive Nonreactive [facility] Blood 12/28/2021 6:56 AM CDT 12/28/2021 7:02 AM CDT Jerome Arredondo MD LAB MICROBIOL OGY - GENERAL ORDERABLES Edited Result - Final [facility] Department [place] [address] from Last 3 Months or Most Recently Relevant to Health Maintenance Advance Directives For more information, please contact: [phone] * Full Code (Latest Code Status on File) Date Activated Date Inactivated Comments 12/28/2021 1:26 AM 12/31/2021 3:18 PM Care Teams Integration Technician Relationship Specialty Start Date End Date No, Physician PCP - General 12/27/21
--- OUTSIDE RECORDS SUMMARY | 2025-01-13 23:35 | XMS_ITS | Continuity of Care Document ---
Author Organization [facility] Address [address] [place] [address] Phone Care Team Providers Care Social Sciences Research Scientist Name Role Phone Management, Case Unavailable Unavailable Unavailable Unavailable Unavailable Allergies, Adverse Reactions, Alerts Substance Reaction Status Criticality No Known Allergies Active No Inform ation Medications Medication Instructions Dosage Effective Dates (start - stop) Status Comments clindamycin 300 mg capsule take 1 capsule by oral route three times daily for 10 days - Active ibuprofen 800 mg tablet take 1 tablet by oral route 3 times every day with food as needed for pain - Active chlorhexidine gluconate 0.12 % mouthwash place 15 milliliter by mucous membrane route 2 times every day in the mouth (after meals), swish in mouth for 30 seconds then spit out 15.00 milliliter - Active Procedures Procedure Date OFFICE/OUTPATIENT VISIT, [facility] Advance Directives Directive Yes / No Effective Date File Name No Information Encounters Encounter Description Practice Location Reason(s) For Visit Diagnoses Date Provider Providers Copied on Encounter Packet[facility] , [address], [place], [place], [id number], [place] tel:[phone] [place] [facility] [place] No Information Mar-0 3-201 7 Management Case. [address], [place], [place], [id number], . tel:[phone] Referring Provider: Suhas manning, [address], [place], [address] . tel:[phone] OFFICE/OUTPAT IENT VISIT, [facility] , [address], [place], [place], [id number], [place] tel:[phone] [facility] [place] Dental infection (chief complaint) Dental abscess w/o sinus 7 Shannen Dai. [address], [place], [place], [id number], [place]. tel:[phone] Referring Provider: Suhas Marinelli er, [address], [place], [address] . tel:[phone] Family History Family Member Type Diagnosis Age At Onset No Information Payers Payer name Insurance type Covered constitution party ID Authoriza tion(s) No Information Social History Type Description Quantity Date Captured Comments Alcohol Use Details Unknown Caffeine Use Details Unknown Tobacco Use Status No Information Smoking Status No Information Sex Male Chief Complaint And Reason For Visit No Information Reason For Referral Reason For Referral No Information History Of Present Illness Encounter Date Complaint History Of Prese nt Illness Dental infection Pt went to [facility] ER for right face swelling and pain. Diagnosed with dental infection. Needs rewrite of Cleocin and Motrin. C/o facial pain, headache and difficulty eating due to pain. Functional Status Date Functional Assessmen t No Information Instructions Date Instruction Additional Infor donny Cleocin, Motrin, kaden thwash prescribedInfo given about Dental Urgent Care -- urged patient to call today Related to Dental abscess w/o sinus Assessments Type Assessment Date No Information Patient Care Teams Name Effective Dates (start - stop) Status Members No Information
--- OUTSIDE RECORDS SUMMARY | 2025-01-13 23:35 | XMS_ITS | Encounter Summary ---
Author Organization [facility] Address [address] [place] [address] Phone Care Team Providers Care Media Developer Name Role Phone No, Physician Primary Care Provider [phone] Encounter Details Date Type Department Care Team (Late st Contact Info) Description 12/28/2021 Ophth Exam [facility] Ophthalmology [address] [place] [address] [address] [place] [id number] Felecia Lancaster MD [address] [place] [address] Social History Tobacco Use Types Packs/Day Years Used Date Smoking Tobacco: Every Day Cigarettes Smokeless Tobacco: Current AUDIT-C Answer Date Recorded Q1: How often do you have a drink containing alc ohol? 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 Gender Identity Not on file Sexual Orientation Not on file documented as of this encounter Plan of Treatment Not on file documented as of this encounter Visit Diagnoses Not on filedocumented in this encounter Additional Health Concerns Infection Onset Date Last Indicated Resolved Time COVID: Suspected 07/17/2022 07/17/2022 07/17/2022 1:11 AM CDT COVID: Suspected 10/20/2022 10/20/2022 10/20/2022 4:41 PM AIR BRAKE RIGGER Influenza, adult 10/20/2022 10/20/2022 10/27/2022 3:05 AM AIR BRAKE RIGGER COVID: Suspected 07/05/2023 07/05/2023 07/05/2023 7:55 PM CDT documented as of this encounter Eye Exam Visual Acuity Right eye Left eye Near sc 20/20 20/20 Tonometry (Tonopen, 2:00 AM) Right eye Left eye Pressure 12 14 Pupils Dark Light Shape React APD Right eye 4 2 Round Brisk None Left eye 4 2 Round Brisk None Visual Evans Right eye Left eye Full Full Extraocular Movement Right eye Left eye Full, Ortho Full, Ortho Neuro/Psych Oriented x3: Yes Mood/Affect: Normal Dilation Both eyes: 1.0% Mydriacyl, 2 .5% Phenylephrine @ 2:00 AM Color Pt refused External Exam Right eye Left eye External Normal Normal Slit Lamp Exam Right eye Left eye Lids/Lashes Normal Normal Conjunctiva/Sclera tr injection tr injection Cornea Clear Clear Anterior Chamber Deep and Quiet Deep and Quiet Iris Round and reactive Round and teressa ctive Lens Clear Clear Vitreous Normal no vitritis Normal no vit ritis Fundus Exam Right eye Left eye Disc Sharp margins, no elevation Theodore p margins, no elevation C/D Ratio 0.3 0.3 Macula Flat, attached Flat, attached Vessels Normal course and caliber Normal course and caliber Periphery attached, no lesions attached, n o lesions Care Teams Media Developer Relationship Specialty Start Date End Date No, Physician PCP - General 12/27/21 documented as of this encounter
[2025-01-13] MEDS: KETOROLAC 15 MG/ML VIAL (*BKC) IV PUSH (23:52)
[2025-01-14] LABS: Basophils Percent Auto 0.7 % (0.2-1.2); Eosinophils Absolute Auto 0.2 K/mm3 (0-0.3); Eosinophils Percent Auto 2.6 % (0-4.4); Hematocrit 42.7 % (42.0-52.0); Hemoglobin 14.3 g/dL (14.0-18.0); Immature Granulocyte Absolute 0.03 K/mm3 (0.00-0.031); Immature Granulocyte Percent A 0.5 % (0-0.5); Lymphocytes Absolute Auto 1.91 K/mm3 (0.9-3.2); Lymphocytes Percent Auto 31.3 % (18.3-44.2); Mean Corpuscular HGB Conc 33.5 g/dl (32-36); Mean Corpuscular Hemoglobin 28.1 pg (26-34); Mean Corpuscular Volume 83.9 fl (80-100); Mean Platelet Volume 9.3 fl (7.4-10.4); Monocytes Absolute Auto 0.4 K/mm3 (0.1-0.6); Monocytes Percent Auto 6.9 % (2.6-8.5); Neutrophils Absolute Auto 3.5 K/mm3 (1.3-6.7); Platelet Count Result 321 k/mm3 (150-375); Red Blood Count 5.09 M/mm3 (4.6-6.20); Red Cell Distribution Width 13.1 % (11.5-14.5); White Blood Count 6.1 K/mm3 (4.5-10.0)
[2025-01-14 00:40] LABS: Alanine Aminotransferase 19 U/L (6-50); Albumin Level 4.7 g/dL (3.5-5.1); Alkaline Phosphatase 79 U/L (38-126); Anion Gap 13 mmol/L (4-12); Aspartate Amino Transferase 26 U/L (17-59); Bilirubin,Total 0.5 mg/dL (0.2-1.3); Blood Urea Nitrogen 10 mg/dL (9-20); Calcium 9.5 mg/dL (8.4-10.2); Carbon Dioxide 26 mmol/L (22-30); Chloride 101 mmol/L (98-107); Estimated CRCL calculation 89 ml/min; Estimated Glomerular Filt Rate > 60; Glucose 86 mg/dL (65-110); Potassium 3.6 mmol/L (3.4-5.0); Sodium 140 mmol/L (137-145)
[2025-01-14 01:01] VITALS: BP 131/95; PULSE 95; RESP 13; O2SAT 100
== END 2025-01-14 01:05 | disposition home or self-care (01) ==
PROVIDERS: Emergency Provider Physician Assistant
DX: J40 Bronchitis, not specified as acute or chronic (principal)
CPT/HCPCS: 36415; 71045; 80053; 85025; 93005; 96374; 99284; J1885

== ENCOUNTER 2025-01-22 01:43 | Emergency (ER) | payer SELFPAY ==
--- NOTE | ~2025-01-22 | CT_ITS ---
Clinical Indication: Neck pain, throat pain, chest pain CT Scan of the Neck and Chest with Contrast: Technique: Contiguous sections were acquired throughout the neck and chest after intravenous administ ration of 75 cc of Omnipaque 350. Dose reduction technique was used on this scan by utilizing automat ed exposure control and iterative reconstruction technique. The dose-length product (DLP) was 476.36 mGy-cm. Findings: No soft tissue mass or lymphadenopathy seen in the neck. Parapharyngeal fat preserved bilat erally. No abnormal fluid collection or abscess seen. Parotid and submandibular glands are unremarkab le. Visualized aerodigestive tract is unremarkable. There is no evidence of any significant mediastinal, hilar or axillary lymphadenopathy. There is no f illing defect in the pulmonary arterial tree to suggest pulmonary embolus. There is no evidence of ao rtic dissection or aneurysm. There is no evidence of pleural or pericardial effusion. The lungs are clear. No pulmonary nodules or infiltrates are noted. Images through the upper abdomen reveal no abnormalities. Impression: No significant abnormality identified. Reviewed, dictated and finalized at [facility]. Impression: No significant abnormality identified.
[2025-01-22 01:45] VITALS: BP 144/80; PULSE 100; RESP 19; TEMP 36.4; O2SAT 100
--- OUTSIDE RECORDS SUMMARY | 2025-01-22 01:46 | XMS_ITS | Clinical Summary ---
Author Organization [facility] Address [address] [place] [address] Care Team Providers Care Network Coordinator Name Role Phone No, Physician Primary Care Provider [phone] Allergies No known active allergies Medications acetaminophen [...] (two) times a day 60 tablet 5 Active magnesium citrate solution Take 296 mL by mouth once for 1 dose 296 mL 5 Active cephalexin (KEFLEX) 500 mg capsule Take 1 capsule (500 mg total) by mouth 3 (three) times a day for 5 days 15 capsule 03/2501/07/20 25 Active Problems Problem Noted Date Diagnosed [...] CDT - 01/01/2025 9:37 AM CDT Emergency [facility] Emergency Department [address] [place] [address] Sean Gonzales MD Skin irritation (Primary Dx); Acute maxillary sinusitis, recurrence not specified Discharge Disposition: Discharge to home or self care 01/01/2025 Results Follow-Up [facility] Emergency Department [address] [place] [address] Jerome Ruiz RN 12/30/2024 2:22 AM CDT - 12/30/2024 7:44 AM CDT Emergency [facility] Emergency Department [address] [place] [address] Discharge Disposition: Left without being seen 12/30/2024 Results Follow-Up [facility] Emergency Department [address] [place] [address] Jerome Ruiz RN 12/21/2024 9:06 AM CDT - 12/21/2024 11:05 AM CDT Emergency [facility] Emergency Department [address] [place] [address] Constipation, unspecified constipation type (Primary Dx); Epigastric [...] on file 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 Current Interpretive Data was last revised on 2018. Imm gran pct 0.2 % [facility] Comment: Interpretive Data Percent cell count reference ranges are not reported, since discordance with absolute values may lead to misinterpretation of CBC data. Current Interpretive Data was last revised on 2018. Lymphocyte pct 25.8 % [facility] Comment: Interpretive Data Percent cell count reference ranges are not reported, since discordance with absolute values may lead to misinterpretation of CBC data. Current Interpretive Data was last revised on 2018. Monocyte pct 13.4 % [facility] Comment: Interpretive Data Percent cell count reference ranges are not reported, since discordance with absolute values may lead to misinterpretation of CBC data. Current Interpretive Data was last revised on 2018. Eosinophil pct 4.3 % [facility] Comment: Interpretive Data Percent cell count reference ranges are not reported, since discordance with absolute values may lead to misinterpretation of CBC data. Current Interpretive Data was last revised on 2018. Basophil pct 0.4 % [facility] Comment: Interpretive Data Percent cell count reference ranges are not reported, since discordance with absolute values may lead to misinterpretation of CBC data. Current Interpretive Data was last revised on 2018. Blood 01/01/2025 9:02 AM CDT 01/01/2025 9:08 AM CDT us Sean Gonzales MD LAB BLOOD ORDERABLES Final Res ult [facility] [place] [address] * (ABNORMAL) CBC with auto differential (01/01/2025 9:02 AM CDT) WBC 4.6 3.8 - 9.9 K/cumm Hgb 13.1 13.0 - 17.5 g/dL [facility] Hct 38.2(L) 38.9 - 50.3 % [facility] Plt 274 150 - 400 K/cumm [facility] MPV 10.1 9.1 - 12.3 fL [facility] RBC 4.64 4.30 - 5.80 M/cumm [facility] MCV 82.3 81.3 - 96.4 fL [facility] MCH 28.2 27.1 - 33.3 pg [facility] MCHC 34.3 32.3 - 35.7 g/dL [facility] RDW CV 13.7 11.1 - 14.9 % [facility] RDW SD 40.6 35.7 - 48.1 fL [facility] NRBC abs 0.00 0.00 - 0.01 K/cumm [facility] Blood 01/01/2025 9:02 AM CDT 01/01/2025 9:08 AM CDT us Sean Gonzales MD LAB BLOOD ORDERABLES Final Res ult [facility] [place] [address] * ECG 12-LEAD (12/30/2024 3:33 AM CDT) Narrative [facility] - 12/30/2024 3:33 AM CDT Bhavani Leigh [...] by: Ermelinda Freire M.D. us Chuck Calvert CREDIT RISK MANAGER IMG XR PROCEDURES Final R esult * eGFR (12/21/2024 9:19 AM CDT) Pathologist [facility] eGFR >90 >=60 mL/min/1. 73 m2 Comment: [...] LAB BLOOD ORDERABLES Akiko bedoya Result [facility] Department [place] [address] * Differential, auto (12/21/2024 9:19 AM CDT) Neutrophil abs 2.9 1.5 - 6.5 K/cumm Imm gran abs 0.0 0.0 - 0.1 K/cumm [facility] Lymphocyte abs 1.3 0.8 - 3.3 K/cumm [facility] Monocyte abs 0.6 0.2 - 0.8 K/cumm [facility] Eosinophil abs 0.3 0.0 - 0.5 K/cumm [facility] Basophil abs 0.0 0.0 - 0.1 K/cumm [facility] Neutrophil pct 55.9 % [facility] Comment: Interpretive Data Percent cell count reference ranges are not reported, since discordance with absolute values may lead to misinterpretation of CBC data. Current Interpretive Data was last revised on 2018. Imm gran pct 0.2 % [facility] Comment: Interpretive Data Percent cell count reference ranges are not reported, since discordance with absolute values may lead to misinterpretation of CBC data. Current Interpretive Data was last revised on 2018. Lymphocyte pct 25.5 % [facility] Comment: Interpretive Data Percent cell count reference ranges are not reported, since discordance with absolute values may lead to misinterpretation of CBC data. Current Interpretive Data was last revised on 2018. Monocyte pct 12.4 % [facility] Comment: Interpretive Data Percent cell count reference ranges are not reported, since discordance with absolute values may lead to misinterpretation of CBC data. Current Interpretive Data was last revised on 2018. Eosinophil pct 5.2 % [facility] Comment: Interpretive Data Percent cell count reference ranges are not reported, since discordance with absolute values may lead to misinterpretation of CBC data. Current Interpretive Data was last revised on 2018. Basophil pct 0.8 % [facility] Comment: Interpretive Data Percent cell count reference ranges are not reported, since discordance with absolute values may lead to misinterpretation of CBC data. Current Interpretive Data was last revised on 2018. Blood 12/21/2024 9:19 AM CDT 12/21/2024 9:34 AM CDT Chuck Calvert NP LAB BLOOD ORDERABLES Akiko l Result Performing Organization Address [facility] Co de Phone Number [facility] [place] [address] * CBC with auto differential (12/21/2024 9:19 AM CDT) [facility] WBC 5.2 3.8 - 9.9 K/cumm Hgb 13.1 13.0 - 17.5 g/dL [facility] Hct 38.9 38.9 - 50.3 % [facility] Plt 306 150 - 400 K/cumm [facility] MPV 9.9 9.1 - 12.3 fL [facility] RBC 4.75 4.30 - 5.80 M/cumm [facility] MCV 81.9 81.3 - 96.4 fL [facility] MCH 27.6 27.1 - 33.3 pg [facility] MCHC 33.7 32.3 - 35.7 g/dL [facility] RDW CV 13.2 11.1 - 14.9 % [facility] RDW SD 39.4 35.7 - 48.1 fL [facility] NRBC abs 0.00 0.00 - 0.01 K/cumm [facility] Blood 12/21/2024 9:19 AM CDT 12/21/2024 9:34 AM CDT Chuck Calvert NP LAB BLOOD ORDERABLES Akiko l Result Performing Organization Address [facility] Co de Phone Number [facility] Department [place] [address] * Comprehensive metabolic panel (12/21/2024 9:19 AM CDT) [facility] Sodium 142 135 - 145 mmol/L Potassium, pl 3.5 3.3 - 4.9 mmol/L [facility] Chloride 100 97 - 110 mmol/L [facility] CO2 31 22 - 32 mmol/L [facility] Anion gap 11 2 - 15 mmol/L [facility] BUN 10 6 - 25 mg/dL [facility] Creatinine 1.10 0.80 - 1.30 mg/dL [facility] Glucose 97 70 - 199 mg/dL [facility] Comment: Interpretive Data Fasting glucose >/= 126 [...] 2022. Calcium 10.0 8.5 - 10.3 mg/dL [facility] Bilirubin, total 0.9 0.1 - 1.2 mg/dL [facility] Protein, pl 8.3 6.5 - 8.5 g/dL [facility] Albumin 4.8 3.5 - 5.0 g/dL [facility] Alk phos 86 40 - 130 Units/L [facility] ALT 22 7 - 55 Units/L [facility] AST 38 10 - 50 Units/L [facility] Blood 12/21/2024 9:19 AM CDT 12/21/2024 9:34 AM CDT Chuck Calvert NP LAB BLOOD ORDERABLES Akiko l Result [facility] [place] [address] * Hepatitis panel, acute (12/28/2021 6:56 AM CDT) Hep A IgM Nonreactive Nonreactive [facility] Comment: Interpretive Data: If Hep A IgM Ab is reported as Equivocal, a new sample should be drawn in two weeks for testing. Current interpretive data was last revised on 19. Hep B core IgM Nonreactive Nonreactive [facility] Comment: Interpretive Data If HepB Core IgM Ab is reported as Equivocal, a new sample should be drawn in two weeks for testing. Current interpretive data was last revised on 19. Hep C Ab Nonreactive [facility]reactive [facility] Comment:Antibodies to HCV no t detected. Does NOT exclude the possibility of recent exposure to HCV. HepBsAg Nonreactive Nonreactive [facility] Blood 12/28/2021 6:56 AM CDT 12/28/2021 7:02 AM CDT us Jerome Arredondo MD LAB MICROBIOL OGY - GENERAL ORDERABLES Edited Result - Final [facility] [place] [address] from Last 3 Months or Most Recently Relevant to Health Maintenance Advance Directives For more information, please contact: [phone] * Full Code (Latest Code Status on File) Date Activated Date Inactivated Comments 12/28/2021 1:26 AM 12/31/2021 3:18 PM Care Teams Network Coordinator Relationship Specialty Start Date End Date No, Physician PCP - General 12/27/21
--- OUTSIDE RECORDS SUMMARY | 2025-01-22 01:46 | XMS_ITS | Referral Summary ---
Author Organization [facility] Address [address] [place] [address] Care Team Providers Care Passenger Elevator Operator Name Role Phone No, Physician Primary Care Provider [phone] Encounters Date Type Department Care Team Description 01/01/2025 Results Follow-Up [facility] Emergency Department [address] [place] [phone] Jerome Ruiz RN 01/01/2025 8:21 AM CDT - 01/01/2025 9:37 AM CDT Emergency [facility] Emergency Department [address] [place] [phone] Sean Gonzales MD Skin irritation (Primary Dx); Acute maxillary sinusitis, recurrence not specified Discharge Disposition: Discharge to home or self care 12/30/2024 Results Follow-Up [facility] Emergency Department [address] [place] [phone] Jerome Ruiz RN 12/30/2024 2:22 AM CDT - 12/30/2024 7:44 AM CDT Emergency [facility] Emergency Department [address] [place] [phone] Discharge Disposition: Left without being seen 12/21/2024 9:06 AM CDT - 12/21/2024 11:05 AM CDT Emergency [facility] Emergency Department [address] [place] [phone] Constipation, unspecified constipation type (Primary Dx); Epigastric [...] severe, dependence 2021 Methamphetamine use disorder, moderate 2 Dental abscess 03/06/2017 Facial cellulitis 03/06/2017 Immunizations [...] on file 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 Current Interpretive Data was last revised on 2018. Imm gran pct 0.2 % [facility] Comment: Interpretive Data Percent cell count reference ranges are not reported, since discordance with absolute values may lead to misinterpretation of CBC data. Current Interpretive Data was last revised on 2018. Lymphocyte pct 25.8 % [facility] Comment: Interpretive Data Percent cell count reference ranges are not reported, since discordance with absolute values may lead to misinterpretation of CBC data. Current Interpretive Data was last revised on 2018. Monocyte pct 13.4 % [facility] Comment: Interpretive Data Percent cell count reference ranges are not reported, since discordance with absolute values may lead to misinterpretation of CBC data. Current Interpretive Data was last revised on 2018. Eosinophil pct 4.3 % [facility] Comment: Interpretive Data Percent cell count reference ranges are not reported, since discordance with absolute values may lead to misinterpretation of CBC data. Current Interpretive Data was last revised on 2018. Basophil pct 0.4 % [facility] Comment: Interpretive Data Percent cell count reference ranges are not reported, since discordance with absolute values may lead to misinterpretation of CBC data. Current Interpretive Data was last revised on 2018. Blood 01/01/2025 9:02 AM CDT 01/01/2025 9:08 AM CDT us Sean Gonzales MD LAB BLOOD ORDERABLES Final Res ult [facility] Department [place] [address] * (ABNORMAL) CBC with auto differential (01/01/2025 9:02 AM CDT) WBC 4.6 3.8 - 9.9 K/cumm Hgb 13.1 13.0 - 17.5 g/dL [facility] Hct 38.2(L) 38.9 - 50.3 % [facility] Plt 274 150 - 400 K/cumm [facility] MPV 10.1 9.1 - 12.3 fL [facility] RBC 4.64 4.30 - 5.80 M/cumm [facility] MCV 82.3 81.3 - 96.4 fL [facility] MCH 28.2 27.1 - 33.3 pg [facility] MCHC 34.3 32.3 - 35.7 g/dL [facility] RDW CV 13.7 11.1 - 14.9 % [facility] RDW SD 40.6 35.7 - 48.1 fL [facility] NRBC abs 0.00 0.00 - 0.01 K/cumm [facility] Blood 01/01/2025 9:02 AM CDT 01/01/2025 9:08 AM CDT us Sean Gonzales MD LAB BLOOD ORDERABLES Final Res ult Performing Organization Address [facility] Co de Phone Number [facility] Department [place] [address] * ECG 12-LEAD (12/30/2024 3:33 AM CDT) Narrative [facility] - 12/30/2024 3:33 AM CDT [...] follow up: further workup in the ED Bhavani Leigh MD ECG ORDERABLES Final Resul t Performing Organization Address [facility] Co de Phone Number [facility] * XR Chest Pa Lateral 2 Views [...] CDT 12/21/2024 9:34 AM CDT Chuck Calvert INTEGRATED CIRCUIT FABRICATOR LAB BLOOD ORDERABLES Akiko bedoya Result [facility] Department [place] [address] * Differential, auto (12/21/2024 9:19 AM CDT) Neutrophil abs 2.9 1.5 - 6.5 K/cumm Imm gran abs 0.0 0.0 - 0.1 K/cumm [facility] Lymphocyte abs 1.3 0.8 - 3.3 K/cumm [facility] Monocyte abs 0.6 0.2 - 0.8 K/cumm [facility] Eosinophil abs 0.3 0.0 - 0.5 K/cumm [facility] Basophil abs 0.0 0.0 - 0.1 K/cumm [facility] Neutrophil pct 55.9 % [facility] Comment: Interpretive Data Percent cell count reference ranges are not reported, since discordance with absolute values may lead to misinterpretation of CBC data. Current Interpretive Data was last revised on 2018. Imm gran pct 0.2 % [facility] Comment: Interpretive Data Percent cell count reference ranges are not reported, since discordance with absolute values may lead to misinterpretation of CBC data. Current Interpretive Data was last revised on 2018. Lymphocyte pct 25.5 % [facility] Comment: Interpretive Data Percent cell count reference ranges are not reported, since discordance with absolute values may lead to misinterpretation of CBC data. Current Interpretive Data was last revised on 2018. Monocyte pct 12.4 % [facility] Comment: Interpretive Data Percent cell count reference ranges are not reported, since discordance with absolute values may lead to misinterpretation of CBC data. Current Interpretive Data was last revised on 2018. Eosinophil pct 5.2 % [facility] Comment: Interpretive Data Percent cell count reference ranges are not reported, since discordance with absolute values may lead to misinterpretation of CBC data. Current Interpretive Data was last revised on 2018. Basophil pct 0.8 % [facility] Comment: Interpretive Data Percent cell count reference ranges are not reported, since discordance with absolute values may lead to misinterpretation of CBC data. Current Interpretive Data was last revised on 2018. Blood 12/21/2024 9:19 AM CDT 12/21/2024 9:34 AM CDT Chuck Calvert NP LAB BLOOD ORDERABLES Akiko l Result [facility] Department [place] [address] * CBC with auto differential (12/21/2024 9:19 AM CDT) WBC 5.2 3.8 - 9.9 K/cumm Hgb 13.1 13.0 - 17.5 g/dL [facility] Hct 38.9 38.9 - 50.3 % [facility] Plt 306 150 - 400 K/cumm [facility] MPV 9.9 9.1 - 12.3 fL [facility] RBC 4.75 4.30 - 5.80 M/cumm [facility] MCV 81.9 81.3 - 96.4 fL [facility] MCH 27.6 27.1 - 33.3 pg [facility] MCHC 33.7 32.3 - 35.7 g/dL [facility] RDW CV 13.2 11.1 - 14.9 % [facility] RDW SD 39.4 35.7 - 48.1 fL [facility] NRBC abs 0.00 0.00 - 0.01 K/cumm [facility] Blood 12/21/2024 9:19 AM CDT 12/21/2024 9:34 AM CDT us Chuck Calvert NP LAB BLOOD ORDERABLES Akiko bedoya Result [facility] [place] [address] * Comprehensive metabolic panel (12/21/2024 9:19 AM CDT) Sodium 142 135 - 145 mmol/L Potassium, pl 3.5 3.3 - 4.9 mmol/L [facility] Chloride 100 97 - 110 mmol/L [facility] CO2 31 22 - 32 mmol/L [facility] Anion gap 11 2 - 15 mmol/L [facility] BUN 10 6 - 25 mg/dL [facility] Creatinine 1.10 0.80 - 1.30 mg/dL [facility] Glucose 97 70 - 199 mg/dL [facility] Comment: Interpretive Data Fasting glucose [...] 2022. Calcium 10.0 8.5 - 10.3 mg/dL [facility] Bilirubin, total 0.9 0.1 - 1.2 mg/dL [facility] Protein, pl 8.3 6.5 - 8.5 g/dL [facility] Albumin 4.8 3.5 - 5.0 g/dL [facility] Alk phos 86 40 - 130 Units/L [facility] ALT 22 7 - 55 Units/L [facility] AST 38 10 - 50 Units/L [facility] Blood 12/21/2024 9:19 AM CDT 12/21/2024 9:34 AM CDT us Chuck Calvert INTEGRATED CIRCUIT FABRICATOR LAB BLOOD ORDERABLES Akiko l Result Performing Organization Address City/[facility]/ZIP Co de Phone Number [facility] [place] [place] [address] * Hepatitis panel, acute (12/28/2021 6:56 AM CDT) Hep A IgM Nonreactive Nonreactive [facility] Comment: Interpretive Data: If Hep A IgM Ab is reported as Equivocal, a new sample should be drawn in two weeks for testing. Current interpretive data was last revised on 19. Hep B core IgM Nonreactive Nonreactive [facility] Comment: Interpretive Data If HepB Core IgM Ab is reported as Equivocal, a new sample should be drawn in two weeks for testing. Current interpretive data was last revised on 19. Hep C Ab Nonreactive Nonreactive [facility] Comment:Antibodies to HCV no t detected. Does NOT exclude the possibility of recent exposure to HCV. HepBsAg Nonreactive Nonreactive [facility] Blood 12/28/2021 6:56 AM CDT 12/28/2021 7:02 AM CDT us Jerome Arredondo MD LAB MICROBIOL OGY - GENERAL ORDERABLES Edited Result - Final [facility] [place] [address] from Last 3 Months or Most Recently Relevant to Health Maintenance Advance Directives For more information, please contact: [phone] * Full Code (Latest Code Status on File) Date Activated Date Inactivated Comments 12/28/2021 1:26 AM 12/31/2021 3:18 PM Care Teams Passenger Elevator Operator Relationship Specialty Start Date End Date No, Physician PCP - General 12/27/21
--- OUTSIDE RECORDS SUMMARY | 2025-01-22 01:47 | XMS_ITS | Continuity of Care Document ---
Author Organization [facility] Address [address] [place] [address] Phone Care Team Providers Care Patient Relations Liaison Name Role Phone Management, Case Unavailable Unavailable [...] - Active Procedures Procedure Date OFFICE/OUTPATIENT VISIT, [facility] Advance Directives Directive Yes / No Effective Date File Name No Information Encounters Encounter Description Practice Location Reason(s) For Visit Diagnoses Date Provider Providers Copied on Encounter [facility] , [address], [place], [place], [id number], [place] tel:[phone] Carrie On Betty No Information Mar-0 3-201 7 Management Case. [address], [place], [place], [id number], . tel:[phone] Referring Provider: Suhas manning, [address], [place], [address] . tel:[phone] OFFICE/OUTPAT IENT VISIT, [facility] , [address], [place], [place], [id number], [place] tel:[phone] Carrie On [place] Dental infection (chief complaint) Dental abscess w/o sinus 7 Shannen Dai. [address], [place], [place], [id number], [place]. tel:[phone] Referring Provider: Suhas Marinelli er, [address], [place], [address] . tel:[phone] Family History Family Member Type Diagnosis Age At Onset No Information Payers Payer name Insurance type Covered green party ID Authoriza tion(s) No Information Social [...] nt Illness Dental infection Pt went to [facility] ER for right face swelling and [...]
--- OUTSIDE RECORDS SUMMARY | 2025-01-22 01:47 | XMS_ITS | Encounter Summary ---
Author Organization [facility] Address [address] [place] [address] Phone Care Team Providers Care Reading Assistant Name Role Phone No, Physician Primary Care Provider [phone] Encounter Details Date Type Department Care Team (Late st Contact Info) Description 12/28/2021 Ophth Exam [facility] Ophthalmology [address] [place] [address] 1[address] [place] [id number] Felecia Lancaster MD [address] [place] [address] Social History Tobacco Use Types Packs/Day Years [...] on file Legal Sex Male 8:55 AM [employer] Gender Identity Not on file Sexual Orientation Not on file documented as of this encounter Plan of Treatment Not on file documented as of this encounter Visit Diagnoses Not on filedocumented in this encounter Additional Health Concerns Infection Onset Date Last Indicated Resolved Time COVID: Suspected 07/17/2022 07/17/2022 07/17/2022 1:11 AM CDT COVID: Suspected 10/20/2022 10/20/2022 10/20/2022 4:41 PM [employer] Influenza, adult 10/20/2022 10/20/2022 10/27/2022 3:05 AM [employer] COVID: Suspected 07/05/2023 07/05/2023 07/05/2023 7:55 PM [...] lesions attached, n o lesions Care Teams Reading Assistant Relationship Specialty Start Date End Date No, Physician PCP - General 12/27/21 documented as of this encounter
--- NOTE | 2025-01-22 01:57 | ED.GENADULT ---
HPI - General Adult General Chief complaint: Unspecified Stated complaint: throat problem Related Data Allergies Allergy/AdvReac Type Severity Reaction Status Date / Time No Known Allergies Allergy Verified 01/22/25 01:45 Course Vital Signs Vital signs: Vital Signs Temperature 97.6 F 01/22/25 01:45 Pulse Rate 100 01/22/25 01:45 Respiratory Rate 19 01/22/25 01:45 Blood Pressure 144/80 H 01/22/25 01:45 Pulse Oximetry 100 01/22/25 01:45 Oxygen Delivery Room Air 01/22/25 01:45 Temperature 97.6 F 01/22/25 01:45 Pulse Rate 100 01/22/25 01:45 Respiratory Rate 19 01/22/25 01:45 Blood Pressure 144/80 H 01/22/25 01:45 Pulse Oximetry 100 01/22/25 01:45 Oxygen Delivery Room Air 01/22/25 01:45 Medical Decision Making Vital Signs Vital Signs: Vital Signs Temperature 97.6 F 01/22/25 01:45 Pulse Rate 100 01/22/25 01:45 Respiratory Rate 01/22/25 01:45 Blood Pressure 144/80 H 01/22/25 01:45 Pulse Oximetry 100 01/22/25 01:45 Oxygen Delivery Room Air 01/22/25 01:45 Temperature 97.6 F 01/22/25 01:45 Pulse Rate 100 01/22/25 01:45 Respiratory Rate 01/22/25 01:45 Blood Pressure 144/80 H 01/22/25 01:45 Pulse Oximetry 100 01/22/25 01:45 Oxygen Delivery Room Air 01/22/25 01:45 Discharge Plan Discharge Patient Language: Estonian Prescriptions: No Action methylprednisolone [Medrol (Jurgen)] 4 mg tablets,dose pack See Rx Instructions .ROUTE .COMPLEX Qty: 21 0RF Rx Instructions: for 6 days albuterol sulfate 90 mcg/actuation aerosol powdr breath activated 2 inh inhalation Q4-6H PRN (Reason: shortness of breath or wheezing) Qty: 1 0RF Follow-up/Referrals: PHYSICIAN,CLINICAL MANAGER HOME CARE [Primary Care Provider] -
[2025-01-22 02:07] VITALS: RESP 14; O2SAT 100
--- NOTE | 2025-01-22 02:07 | ED_ITS ---
HPI - General Adult General Chief complaint: Unspecified Stated complaint: throat problem Time Seen by Provider: 01/22/25 02:06 Source: patient Mode of arrival: ambulatory Limitations: no limitations History of Present Illness HPI narrative: Patient presents with report of a throat problem. States he can't breathe. Experiencing a tightness in his chest with deep breath. Also concerned because he had diarrhea for a year while he was locked up/incarcerated. States he is concerned he has a parasitic infection. Intermittent abdominal pain. Says while imprisoned he ate 3 meals a day but lost weight. No recent camping. Only travel has been to [place]. Does not have a PCP. Thought maybe his stool was bloody but says his girlfriend said it wasn't bloody. Living with his girlfriend's parent. Stool has been orange. Says pain is in his throat/jaw, rubbing his neck. Also feels a pressure behind his eyes. Says it is hard to talk. No underlying respiratory issues. Doesn't smoke cigarettes but does smoke marijuana occasionally. Only history of surgery is dental extraction but nothing recently. No new meds but thinks he has been using some OTC meds. Says occasionally has some lower back dental pain. Seeen recently and diagnosed with bronchitis. Took steroid and antibiotic. Complaining of sore throat. Cough has not been as much of a problem lately. No hemoptysis. Complainign of odynophargia and dysphonia. Said he had a fever yesterday. Related Data Allergies Allergy/AdvReac Type Severity Reaction Status Date / Time No Known Allergies Allergy Verified 01/22/25 01:45 [facility] Social History Social History Living arrangements: other Additional living arrangements comments: previously incarcerated, now living with girlfriend's family Exam 2 Narrative: GENERAL: Thin but Well-appearing, well-nourished, and in no acute distress. HEAD: Normocephalic, atraumatic. EYES: Non injected, non icteric ENT: Nares clear, no rhinorrhea or epistaxis. Posterior oropharynx without erythema. Mild left tonsillar swelling. No trismus. NECK: Supple. No meningismus. No lymphadenopathy or fullness. CHEST: Speaking in full sentences. No respiratory distress. Lungs clear to auscultation without crackles/consolidation/wheezes. no stridor. Non labored. HEART: Regular rate and rhythm. . ABDOMEN: Soft, nondistended. EXTREMITIES: Normal range of motion. No lower extremity edema. GLADIS: Performed with RN Breanna present as teacher of the deaf/hard of hearing. Normal rectal tone. FOBT/guiaic negative SKIN: Warm, dry, no rash. NEURO: No focal deficits. Alert and oriented x3. PSYCH:Congruent mood and affect. Eyes Frequently darting around, speaking rapidly, turning head often to look back at monitor. Course Vital Signs Vital signs: Vital Signs Temperature 97.6 F 01/22/25 01:45 Pulse Rate 100 01/22/25 01:45 Respiratory Rate 19 01/22/25 01:45 Blood Pressure 144/80 H 01/22/25 01:45 Pulse Oximetry 100 01/22/25 01:45 Oxygen Delivery Room Air 01/22/25 01:45 Temperature 97.6 F 01/22/25 01:45 Pulse Rate 82 01/22/25 05:50 Respiratory Rate 17 01/22/25 05:50 Blood Pressure 133/84 01/22/25 05:50 Pulse Oximetry 100 01/22/25 05:50 Oxygen Delivery Room Air 01/22/25 01:45 Medical Decision Making MDM Narrative Medical decision making narrative: Patient presents with multiple complaints. Complaining of throat pain, rubbing neck and saying he can't breathe and his chest feels tight when he takes a deep breath. Speaking quickly, non labored and with reassuring physical exam. Social determinants of health: Formerly incarcerated. Also complaining of diarrhea for the year he was in intermediate; also weight loss. Concerned for a parasitic infection. Recently seen and diagnosed with bronchitis, took steroid and albuterol. In the emergency department he is afebrile with vital signs notable for hypertension. PERC Rule Age greater than or equal to 50: 0 HR greater than or equal to 100: 0 O2 sat room air <95%: 0 Unilateral leg swellin Hemoptysis: 0 Recent surgery or trauma less than 4 wks ago requiring tx with general anesthesia: 0 Prior PE or DVT: 0 Hormone use (OCP, HRT or estrogenic hormone use in M/F patients): 0 Will defer obtaining D-dimer. Patient has pictures of orange stool. Fecal occult blood test/guiaic is negative . Will defer CT abd imaging. Normocytic anemia, only a 0.8 g drop from previous. Patient had expressed concern for weight loss initially on exam. I am called back to the room by patient because he states even while sitting in the ED he feels like he has lost even more weight. Patient appears under the influence but does not appear to be responding to internal stimuli. Urine drug screen positive for amphetamines and cannabinoids. Patient unable to produce a stool sample in the 4 hours that he is here, less suspicious for C diff. WOrk up has otherwise been unremarkable. Vital Signs Vital Signs: Vital Signs Temperature 97.6 F 01/22/25 01:45 Pulse Rate 100 01/22/25 01:45 Respiratory Rate 19 01/22/25 01:45 Blood Pressure 144/80 H 01/22/25 01:45 Pulse Oximetry 100 01/22/25 01:45 Oxygen Delivery Room Air 01/22/25 01:45 Temperature 97.6 F 01/22/25 01:45 Pulse Rate 82 01/22/25 05:50 Respiratory Rate 17 01/22/25 05:50 Blood Pressure 133/84 01/22/25 05:50 Pulse Oximetry 100 01/22/25 05:50 Oxygen Delivery Room Air 01/22/25 01:45 Lab Data Lab results reviewed: Yes I reviewed the patient's lab results. Lab results narrative: Strep negative. Chemistry unremarkable . Lipase only mildly elevated. Viral swab negative. Urinalysis normal. 01/22/25 03:02 01/22/25 03:02 Labs: Lab Results 01/22/25 01/22/25 Range/Units 03:02 03:50 WBC 4.6 (4.5-10.0) K/mm3 RBC 4.69 (4.6-6.20) M/mm3 Hgb 13.1 L (14.0-18.0) g/dL Hct 39.4 L (42.0-52.0) % MCV 84.0 (80-100) fl MCH 27.9 (26-34) pg MCHC 33.2 (32-36) g/dl RDW 13.3 (11.5-14.5) % Plt Count 298 (150-375) k/mm3 MPV 9.4 (7.4-10.4) fl Immature Gran % (Auto) 0.2 (0-0.5) % Neut % (Auto) 53.9 (45.5-73.1) % Lymph % (Auto) 31.9 (18.3-44.2) % Geary % (Auto) 8.1 (2.6-8.5) % Eos % (Auto) 5.0 H (0-4.4) % Baso % (Auto) 0.9 (0.2-1.2) % Lymph # (Auto) 1.46 (0.9-3.2) K/mm3 Geary # (Auto) 0.4 (0.1-0.6) K/mm3 Eos # (Auto) 0.2 (0-0.3) K/mm3 Baso # (Auto) 0.0 (0.0-0.1) K/mm3 Abs Immat Gran (auto) 0.01 (0.00-0.031) K/mm3 Absolute Neuts (auto) 2.5 (1.3-6.7) K/mm3 Absolute Nucleated RBC 0.000 (0.0-0.012) K/mm3 Nucleated RBC % 0.0 (0.0-0.2) % Sodium 140 (137-145) mmol/L Potassium 4.0 (3.4-5.0) mmol/L Chloride 103 (98-107) mmol/L Carbon Dioxide 25 (22-30) mmol/L Anion Gap 12 (4-12) mmol/L BUN 12 (9-20) mg/dL Creatinine 0.95 (0.7-1.3) mg/dL Estim Creat Clear Calc 90 ml/min Estimated GFR > 60 (59 - ) Glucose 85 (65-110) mg/dL Calcium 9.4 (8.4-10.2) mg/dL Total Bilirubin 0.5 (0.2-1.3) mg/dL AST 24 (17-59) U/L ALT 19 (6-50) U/L Alkaline Phosphatase 67 (38-126) U/L Total Protein 8.0 (6.3-8.2) g/dL Albumin 4.6 (3.5-5.1) g/dL Lipase 330 H (23-300) U/L Urine Color Yellow (Yellow) Urine Appearance Clear (Clear) Urine pH 5.5 (5.0-9.0) Ur Specific [place] 1.017 (1.001-1.035) Urine Protein Negative (Negative) mg/dL Urine Glucose (UA) Negative (Negative) mg/dL Urine Ketones Negative (Negative) mg/dL Ur Blood (Man) Negative (Negative) Urine Nitrate Negative (Negative) Urine Bilirubin Negative (Negative) Urine Urobilinogen 0.2 (<2.0) mg/dL Leukocyte Esterase Rfl Negative (Negative) LIANA/UL Urine Opiates Screen Negative (Negative) Urine Methadone Screen Negative (Negative) Ur Barbiturates Screen Negative (Negative) Ur Phencyclidine Scrn Negative (Negative) Ur Amphetamine Screen Positive A (Negative) U Benzodiazepines Scrn Negative (Negative) Urine Cocaine Screen Negative (Negative) U Cannabinoids Screen Positive A (Negative) Ethyl Alcohol < 10 (<10) mg/dL Influenza A (RT-PCR) Negative (Negative) Influenza B (RT-PCR) Negative (Negative) RSV (RT-PCR) Negative (Negative) SARS-CoV-2 RNA (RT-PCR) Negative (Negative) Group A Strep (PCR) Not detected (Negative) Imaging Data Radiologist's impression: CT neck soft tissue stat rad: No acute findings of the neck CT chest with contrast Stat Rad: The lungs are clear. The heart size is within normal limits. No pathologically enlarged lymph nodes. No fracture. No incidental findings. ECG Data EKG #1: Attestation: I personally reviewed and interpreted this ECG as follows: ECG completion date: 01/22/25 ECG completion time: 02:40 Interpretation: Normal sinus rhythm at a rate of 85 beats per minute. AR interval 154. QRS 100. QT/QTC 352/395. Good R-wave progression across the precordial leads. No T-wave inversions. Patient has notching/slurring of the J-point the inferior leads 2, 3, and AVF, suspect a component of benign early repol. Discharge Plan Discharge Clinical Impression: Normocytic anemia, Pain in throat and chest, Abnormal drug screen, Marijuana use Patient Disposition: Home Condition: Stable Instructions: Antibiotic Form, Chest Pain (ED), Cannabis Use Disorder (ED), Methamphetamine Use Disorder (ED), Anemia (ED), Neck Pain (ED) Additional Instructions: Your workup did not reveal a cause of your symptoms/concerns and this included a CT scan of the neck/soft tissue as well as of the chest. Your vital signs were stable including your oxygenation. Acetaminophen/Tylenol (maximum 4000 mg per day) is safe to take with NSAIDs (ibuprofen/Motrin) for pain relief. Follow-up with a primary care physician. If you do not have 1 the name of a doctor is listed below. Return if any new or worsening symptoms Patient Language: Irish Prescriptions: New acetaminophen 650 mg tablet extended release 650 mg PO Q8H PRN (Reason: pain) Qty: 20 0RF ibuprofen 600 mg tablet 600 mg PO TID PRN (Reason: pain) Qty: 20 0RF No Action methylprednisolone [Medrol (Jurgen)] 4 mg tablets,dose pack See Rx Instructions .ROUTE .COMPLEX Qty: 21 0RF Rx Instructions: for 6 days albuterol sulfate 90 mcg/actuation aerosol powdr breath activated 2 inh inhalation Q4-6H PRN (Reason: shortness of breath or wheezing) Qty: 1 0RF Follow-up/Referrals: PHYSICIAN,MOTORS AND CONTROLS TESTER [Primary Care Provider] - Rodney Delgado MD [Physician] - Stand Alone Forms: Work/School Release IP Time of Disposition: 05:41
[2025-01-22 02:10] VITALS: PULSE 89; RESP 16; O2SAT 100
--- NOTE | 2025-01-22 02:22 | ECG_ITS ---
Test Date: 2025-01-22 02:40:43 Measurements Intervals [place] Rate: 85 P: 69 AL: 154 QRS: 85 QRSD: 100 T: 58 QT: 352 QTc: 421 Interpretive Statements SINUS RHYTHM MINIMAL Q WAVES- INFERIOR LEADS BASELINE ARTIFACT- I, II, AVR, V3 BORDERLINE ECG Compared to ECG 01/13/2025 23:50:32 No significant changes Electronically Signed On 01-22-2025 06:22:22 CDT by Charli Cruz D.O.
--- OUTSIDE RECORDS SUMMARY | 2025-01-22 02:28 | XMS_ITS | Clinical Summary ---
Author Organization [facility] Address [address] [place] [address] Care Team Providers Care Gas Compressor Operator Name Role Phone No, Physician Primary Care Provider [phone] Allergies No known active allergies Medications acetaminophen [...] CDT - 01/01/2025 9:37 AM CDT Emergency [facility] Emergency Department [address] [place] [address] Sean Gonzales MD Skin irritation (Primary Dx); Acute maxillary sinusitis, recurrence not specified Discharge Disposition: Discharge to home or self care 01/01/2025 Results Follow-Up [facility] Emergency Department [address] [place] [address] Jerome Ruiz RN 12/30/2024 2:22 AM CDT - 12/30/2024 7:44 AM CDT Emergency [facility] Emergency Department [address] [place] [address] Discharge Disposition: Left without being seen 12/30/2024 Results Follow-Up [facility] Emergency Department [address] [place] [address] Jerome Ruiz RN 12/21/2024 9:06 AM CDT - 12/21/2024 11:05 AM CDT Emergency [facility] Emergency Department 1 [place] [address] Constipation, unspecified constipation type (Primary Dx); Epigastric [...] on file 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 Current Interpretive Data was last revised on 2018. Imm gran pct 0.2 % [facility] Comment: Interpretive Data Percent cell count reference ranges are not reported, since discordance with absolute values may lead to misinterpretation of CBC data. Current Interpretive Data was last revised on 2018. Lymphocyte pct 25.8 % [facility] Comment: Interpretive Data Percent cell count reference ranges are not reported, since discordance with absolute values may lead to misinterpretation of CBC data. Current Interpretive Data was last revised on 2018. Monocyte pct 13.4 % [facility] Comment: Interpretive Data Percent cell count reference ranges are not reported, since discordance with absolute values may lead to misinterpretation of CBC data. Current Interpretive Data was last revised on 2018. Eosinophil pct 4.3 % [facility] Comment: Interpretive Data Percent cell count reference ranges are not reported, since discordance with absolute values may lead to misinterpretation of CBC data. Current Interpretive Data was last revised on 2018. Basophil pct 0.4 % [facility] Comment: Interpretive Data Percent cell count reference ranges are not reported, since discordance with absolute values may lead to misinterpretation of CBC data. Current Interpretive Data was last revised on 2018. Blood 01/01/2025 9:02 AM CDT 01/01/2025 9:08 AM CDT us Sean Gonzales MD LAB BLOOD ORDERABLES Final Res ult [facility] Department [place] [address] * (ABNORMAL) CBC with auto differential (01/01/2025 9:02 AM CDT) WBC 4.6 3.8 - 9.9 K/cumm Hgb 13.1 13.0 - 17.5 g/dL [facility] Hct 38.2(L) 38.9 - 50.3 % [facility] Plt 274 150 - 400 K/cumm [facility] MPV 10.1 9.1 - 12.3 fL [facility] RBC 4.64 4.30 - 5.80 M/cumm [facility] MCV 82.3 81.3 - 96.4 fL [facility] MCH 28.2 27.1 - 33.3 pg [facility] MCHC 34.3 32.3 - 35.7 g/dL [facility] RDW CV 13.7 11.1 - 14.9 % [facility] RDW SD 40.6 35.7 - 48.1 fL [facility] NRBC abs 0.00 0.00 - 0.01 K/cumm [facility] Blood 01/01/2025 9:02 AM CDT 01/01/2025 9:08 AM CDT us Sean Gonzales MD LAB BLOOD ORDERABLES Final Res ult [facility] Department [place] [address] * ECG 12-LEAD (12/30/2024 3:33 AM CDT) [...] by: Ermelinda Freire M.D. us Chuck Calvert MEAT CUTTING BLOCK REPAIRER IMG XR PROCEDURES Final R esult * eGFR (12/21/2024 9:19 AM CDT) Pathologist [facility] eGFR >90 >=60 mL/min/1. 73 m2 Comment: [...] LAB BLOOD ORDERABLES Akiko bedoya Result [facility] Department [place] [address] * Differential, auto (12/21/2024 9:19 AM CDT) Neutrophil abs 2.9 1.5 - 6.5 K/cumm Imm gran abs 0.0 0.0 - 0.1 K/cumm [facility] Lymphocyte abs 1.3 0.8 - 3.3 K/cumm [facility] Monocyte abs 0.6 0.2 - 0.8 K/cumm [facility] Eosinophil abs 0.3 0.0 - 0.5 K/cumm [facility] Basophil abs 0.0 0.0 - 0.1 K/cumm [facility] Neutrophil pct 55.9 % [facility] Comment: Interpretive Data Percent cell count reference ranges are not reported, since discordance with absolute values may lead to misinterpretation of CBC data. Current Interpretive Data was last revised on 2018. Imm gran pct 0.2 % [facility] Comment: Interpretive Data Percent cell count reference ranges are not reported, since discordance with absolute values may lead to misinterpretation of CBC data. Current Interpretive Data was last revised on 2018. Lymphocyte pct 25.5 % [facility] Comment: Interpretive Data Percent cell count reference ranges are not reported, since discordance with absolute values may lead to misinterpretation of CBC data. Current Interpretive Data was last revised on 2018. Monocyte pct 12.4 % [facility] Comment: Interpretive Data Percent cell count reference ranges are not reported, since discordance with absolute values may lead to misinterpretation of CBC data. Current Interpretive Data was last revised on 2018. Eosinophil pct 5.2 % [facility] Comment: Interpretive Data Percent cell count reference ranges are not reported, since discordance with absolute values may lead to misinterpretation of CBC data. Current Interpretive Data was last revised on 2018. Basophil pct 0.8 % [facility] Comment: Interpretive Data Percent cell count reference ranges are not reported, since discordance with absolute values may lead to misinterpretation of CBC data. Current Interpretive Data was last revised on 2018. Blood 12/21/2024 9:19 AM CDT 12/21/2024 9:34 AM CDT Chuck Calvert NP LAB BLOOD ORDERABLES Akiko l Result Performing Organization Address [facility] Co de Phone Number [facility] Department [place] [address] * CBC with auto differential (12/21/2024 9:19 AM CDT) [facility] WBC 5.2 3.8 - 9.9 K/cumm Hgb 13.1 13.0 - 17.5 g/dL [facility] Hct 38.9 38.9 - 50.3 % [facility] Plt 306 150 - 400 K/cumm [facility] MPV 9.9 9.1 - 12.3 fL [facility] RBC 4.75 4.30 - 5.80 M/cumm [facility] MCV 81.9 81.3 - 96.4 fL [facility] MCH 27.6 27.1 - 33.3 pg [facility] MCHC 33.7 32.3 - 35.7 g/dL [facility] RDW CV 13.2 11.1 - 14.9 % [facility] RDW SD 39.4 35.7 - 48.1 fL [facility] NRBC abs 0.00 0.00 - 0.01 K/cumm [facility] Blood 12/21/2024 9:19 AM CDT 12/21/2024 9:34 AM CDT Chuck Calvert NP LAB BLOOD ORDERABLES Akiko l Result Performing Organization Address [facility] Co de Phone Number [facility] Department [place] [address] * Comprehensive metabolic panel (12/21/2024 9:19 AM CDT) [facility] Sodium 142 135 - 145 mmol/L Potassium, pl 3.5 3.3 - 4.9 mmol/L [facility] Chloride 100 97 - 110 mmol/L [facility] CO2 31 22 - 32 mmol/L [facility] Anion gap 11 2 - 15 mmol/L [facility] BUN 10 6 - 25 mg/dL [facility] Creatinine 1.10 0.80 - 1.30 mg/dL [facility] Glucose 97 70 - 199 mg/dL [facility] Comment: Interpretive Data Fasting glucose >/= 126 [...] 2022. Calcium 10.0 8.5 - 10.3 mg/dL [facility] Bilirubin, total 0.9 0.1 - 1.2 mg/dL [facility] Protein, pl 8.3 6.5 - 8.5 g/dL [facility] Albumin 4.8 3.5 - 5.0 g/dL [facility] Alk phos 86 40 - 130 Units/L [facility] ALT 22 7 - 55 Units/L [facility] AST 38 10 - 50 Units/L [facility] Blood 12/21/2024 9:19 AM CDT 12/21/2024 9:34 AM CDT Chuck Calvert NP LAB BLOOD ORDERABLES Akiko l Result [facility] Department [place] [address] * Hepatitis panel, acute (12/28/2021 6:56 AM CDT) Hep A IgM Nonreactive Nonreactive [facility] Comment: Interpretive Data: If Hep A IgM Ab is reported as Equivocal, a new sample should be drawn in two weeks for testing. Current interpretive data was last revised on 19. Hep B core IgM Nonreactive Nonreactive [facility] Comment: Interpretive Data If HepB Core IgM Ab is reported as Equivocal, a new sample should be drawn in two weeks for testing. Current interpretive data was last revised on 19. Hep C Ab Nonreactive Non[facility] Comment:Antibodies to HCV no t detected. Does NOT exclude the possibility of recent exposure to HCV. HepBsAg Nonreactive Nonreactive [facility] Blood 12/28/2021 6:56 AM CDT 12/28/2021 7:02 AM CDT us Jerome Arredondo MD LAB MICROBIOL OGY - GENERAL ORDERABLES Edited Result - Final [facility] Department [place] [address] from Last 3 Months or Most Recently Relevant to Health Maintenance Advance Directives For more information, please contact: [phone] * Full Code (Latest Code Status on File) Date Activated Date Inactivated Comments 12/28/2021 1:26 AM 12/31/2021 3:18 PM Care Teams Gas Compressor Operator Relationship Specialty Start Date End Date No, Physician PCP - General 12/27/21
--- OUTSIDE RECORDS SUMMARY | 2025-01-22 02:28 | XMS_ITS | Continuity of Care Document ---
Author Organization [facility] Address [address] [place] [address] Phone Care Team Providers Care Hide Cooking Operator Name Role Phone Management, Case Unavailable Unavailable [...] - Active Procedures Procedure Date OFFICE/OUTPATIENT VISIT, [facility] Advance Directives Directive Yes / No Effective Date File Name No Information Encounters Encounter Description Practice Location Reason(s) For Visit Diagnoses Date Provider Providers Copied on Encounter [employer] [facility] , [address], [place], [place], [id number], [place] tel:[phone] Carrie On Betty No Information Mar-0 3-201 7 Management Case. [address], [place], [place], [id number], . tel:[phone] Referring Provider: Suhas manning, [address], [place], [address] . tel:[phone] OFFICE/OUTPAT IENT VISIT, [facility] , [address], [place], [place], [id number], [place] tel:[phone] Carrie On Waterman Dental infection (chief complaint) Dental abscess w/o sinus 7 Shannen Dai. [address], [place], [place], [id number], [place]. tel:[phone] Referring Provider: Suhas Marinelli er, [address], [place], [address] . tel:[phone] Family History Family Member Type Diagnosis Age At Onset No Information Payers Payer name Insurance type Covered democrat ID Authoriza tion(s) No Information Social History [...] nt Illness Dental infection Pt went to [facility] ER for right face swelling and pain. [...]
--- OUTSIDE RECORDS SUMMARY | 2025-01-22 02:28 | XMS_ITS | Encounter Summary ---
Author Organization [facility] Address [address] [place] [address] Phone Care Team Providers Care Burner Shaft Name Role Phone No, Physician Primary Care Provider [phone] Encounter Details Date Type Department Care Team (Late st Contact Info) Description 12/28/[address] 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 Gender Identity Not on file Sexual Orientation Not on file documented as of this encounter Plan of Treatment Not on file documented as of this encounter Visit Diagnoses Not on filedocumented in this encounter Additional Health Concerns Infection Onset Date Last Indicated Resolved Time COVID: Suspected 07/17/2022 07/17/2022 07/17/2022 1:11 AM CDT COVID: Suspected 10/20/2022 10/20/2022 10/20/2022 4:41 PM TOOL MAKER BENCH Influenza, adult 10/20/2022 10/20/2022 10/27/2022 3:05 AM TOOL MAKER BENCH COVID: Suspected 07/05/2023 07/05/2023 07/05/2023 7:55 PM [...] lesions attached, n o lesions Care Teams Burner Shaft Relationship Specialty Start Date End Date No, Physician PCP - General 12/27/21 documented as of this encounter
--- OUTSIDE RECORDS SUMMARY | 2025-01-22 02:28 | XMS_ITS | Referral Summary ---
Author Organization [facility] Address [address] [place] [address] Care Team Providers Care Program Administrator Name Role Phone No, Physician Primary Care Provider [phone] Encounters Date Type Department Care Team Description 01/01/2025 Results Follow-Up [facility] Emergency Department 1 [place] [phone] Jerome Ruiz RN 01/01/2025 8:21 AM CDT - 01/01/2025 9:37 AM CDT Emergency [facility] Emergency Department [address] [place] [phone] Sean Gonzales MD Skin irritation (Primary Dx); Acute maxillary sinusitis, recurrence not specified Discharge Disposition: Discharge to home or self care 12/30/2024 Results Follow-Up [facility] Emergency Department [address] [place] [phone] Jerome Ruiz RN 12/30/2024 2:22 AM CDT - 12/30/2024 7:44 AM CDT Emergency [facility] Emergency Department 1 [place] [phone] Discharge Disposition: Left without being seen 12/21/2024 9:06 AM CDT - 12/21/2024 11:05 AM CDT Emergency 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 Current Interpretive Data was last revised on 2018. Imm gran pct 0.2 % [facility] Comment: Interpretive Data Percent cell count reference ranges are not reported, since discordance with absolute values may lead to misinterpretation of CBC data. Current Interpretive Data was last revised on 2018. Lymphocyte pct 25.8 % [facility] Comment: Interpretive Data Percent cell count reference ranges are not reported, since discordance with absolute values may lead to misinterpretation of CBC data. Current Interpretive Data was last revised on 2018. Monocyte pct 13.4 % [facility] Comment: Interpretive Data Percent cell count reference ranges are not reported, since discordance with absolute values may lead to misinterpretation of CBC data. Current Interpretive Data was last revised on 2018. Eosinophil pct 4.3 % [facility] Comment: Interpretive Data Percent cell count reference ranges are not reported, since discordance with absolute values may lead to misinterpretation of CBC data. Current Interpretive Data was last revised on 2018. Basophil pct 0.4 % [facility] Comment: Interpretive Data Percent cell count reference ranges are not reported, since discordance with absolute values may lead to misinterpretation of CBC data. Current Interpretive Data was last revised on 2018. Blood 01/01/2025 9:02 AM CDT 01/01/2025 9:08 AM CDT us Sean Gonzales MD LAB BLOOD ORDERABLES Final Res ult [facility] One [facility] Department [place] [address] * (ABNORMAL) CBC with auto differential (01/01/2025 9:02 AM CDT) WBC 4.6 3.8 - 9.9 K/cumm Hgb 13.1 13.0 - 17.5 g/dL [facility] Hct 38.2(L) 38.9 - 50.3 % [facility] Plt 274 150 - 400 K/cumm [facility] MPV 10.1 9.1 - 12.3 fL [facility] RBC 4.64 4.30 - 5.80 M/cumm [facility] MCV 82.3 81.3 - 96.4 fL [facility] MCH 28.2 27.1 - 33.3 pg [facility] MCHC 34.3 32.3 - 35.7 g/dL [facility] RDW CV 13.7 11.1 - 14.9 % [facility] RDW SD 40.6 35.7 - 48.1 fL [facility] NRBC abs 0.00 0.00 - 0.01 K/cumm [facility] Blood 01/01/2025 9:02 AM CDT 01/01/2025 9:08 AM CDT us Sean Gonzales MD LAB BLOOD ORDERABLES Final Res ult Performing Organization Address [facility] Co de Phone Number [facility] One [facility] Department [place] [address] * ECG 12-LEAD (12/30/2024 3:33 AM CDT) Narrative [facility] - 12/30/2024 3:33 AM CDT Bhavani Leigh [...] Final Resul t Performing Organization Address [facility] Co de Phone Number [facility] * XR Chest Pa Lateral 2 Views [...] CDT 12/21/2024 9:34 AM CDT Chuck Calvert MILITARY EDUCATION COORDINATOR LAB BLOOD ORDERABLES Akiko bedoya Result [facility] One [facility] Department [place] [address] * Differential, auto (12/21/2024 9:19 AM CDT) Neutrophil abs 2.9 1.5 - 6.5 K/cumm Imm gran abs 0.0 0.0 - 0.1 K/cumm [facility] Lymphocyte abs 1.3 0.8 - 3.3 K/cumm [facility] Monocyte abs 0.6 0.2 - 0.8 K/cumm [facility] Eosinophil abs 0.3 0.0 - 0.5 K/cumm [facility] Basophil abs 0.0 0.0 - 0.1 K/cumm [facility] Neutrophil pct 55.9 % [facility] Comment: Interpretive Data Percent cell count reference ranges are not reported, since discordance with absolute values may lead to misinterpretation of CBC data. Current Interpretive Data was last revised on 2018. Imm gran pct 0.2 % [facility] Comment: Interpretive Data Percent cell count reference ranges are not reported, since discordance with absolute values may lead to misinterpretation of CBC data. Current Interpretive Data was last revised on 2018. Lymphocyte pct 25.5 % [facility] Comment: Interpretive Data Percent cell count reference ranges are not reported, since discordance with absolute values may lead to misinterpretation of CBC data. Current Interpretive Data was last revised on 2018. Monocyte pct 12.4 % [facility] Comment: Interpretive Data Percent cell count reference ranges are not reported, since discordance with absolute values may lead to misinterpretation of CBC data. Current Interpretive Data was last revised on 2018. Eosinophil pct 5.2 % [facility] Comment: Interpretive Data Percent cell count reference ranges are not reported, since discordance with absolute values may lead to misinterpretation of CBC data. Current Interpretive Data was last revised on 2018. Basophil pct 0.8 % [facility] Comment: Interpretive Data Percent cell count reference ranges are not reported, since discordance with absolute values may lead to misinterpretation of CBC data. Current Interpretive Data was last revised on 2018. Blood 12/21/2024 9:19 AM CDT 12/21/2024 9:34 AM CDT Chuck Calvert NP LAB BLOOD ORDERABLES Akiko l Result [facility] Department [place] [address] * CBC with auto differential (12/21/2024 9:19 AM CDT) WBC 5.2 3.8 - 9.9 K/cumm Hgb 13.1 13.0 - 17.5 g/dL [facility] Hct 38.9 38.9 - 50.3 % [facility] Plt 306 150 - 400 K/cumm [facility] MPV 9.9 9.1 - 12.3 fL [facility] RBC 4.75 4.30 - 5.80 M/cumm [facility] MCV 81.9 81.3 - 96.4 fL [facility] MCH 27.6 27.1 - 33.3 pg [facility] MCHC 33.7 32.3 - 35.7 g/dL [facility] RDW CV 13.2 11.1 - 14.9 % [facility] RDW SD 39.4 35.7 - 48.1 fL [facility] NRBC abs 0.00 0.00 - 0.01 K/cumm [facility] Blood 12/21/2024 9:19 AM CDT 12/21/2024 9:34 AM CDT us Chuck Calvert NP LAB BLOOD ORDERABLES Akiko bedoya Result [facility] Department [place] [address] * Comprehensive metabolic panel (12/21/2024 9:19 AM CDT) Sodium 142 135 - 145 mmol/L Potassium, pl 3.5 3.3 - 4.9 mmol/L [facility] Chloride 100 97 - 110 mmol/L [facility] CO2 31 22 - 32 mmol/L [facility] Anion gap 11 2 - 15 mmol/L [facility] BUN 10 6 - 25 mg/dL [facility] Creatinine 1.10 0.80 - 1.30 mg/dL [facility] Glucose 97 70 - 199 mg/dL [facility] Comment: Interpretive Data Fasting glucose >/= 126 [...] 2022. Calcium 10.0 8.5 - 10.3 mg/dL [facility] Bilirubin, total 0.9 0.1 - 1.2 mg/dL [facility] Protein, pl 8.3 6.5 - 8.5 g/dL [facility] Albumin 4.8 3.5 - 5.0 g/dL [facility] Alk phos 86 40 - 130 Units/L [facility] ALT 22 7 - 55 Units/L [facility] AST 38 10 - 50 Units/L [facility] Blood 12/21/2024 9:19 AM CDT 12/21/2024 9:34 AM CDT us Chuck Calvert MILITARY EDUCATION COORDINATOR LAB BLOOD ORDERABLES Akiko l Result Performing Organization Address City/[facility]/ZIP Co de Phone Number [facility] [place] [address] * Hepatitis panel, acute (12/28/2021 6:56 AM CDT) Hep A IgM Nonreactive Nonreactive [facility] Comment: Interpretive Data: If Hep A IgM Ab is reported as Equivocal, a new sample should be drawn in two weeks for testing. Current interpretive data was last revised on 19. Hep B core IgM Nonreactive Nonreactive [facility] Comment: Interpretive Data If HepB Core IgM Ab is reported as Equivocal, a new sample should be drawn in two weeks for testing. Current interpretive data was last revised on 19. Hep C Ab Nonreactive Nonreactive [facility] Comment:Antibodies to HCV no t detected. Does NOT exclude the possibility of recent exposure to HCV. HepBsAg Nonreactive Nonreactive [facility] Blood 12/28/2021 6:56 AM CDT 12/28/2021 7:02 AM CDT us Jerome Arredondo MD LAB MICROBIOL OGY - GENERAL ORDERABLES Edited Result - Final [facility] [place] [address] from Last 3 Months or Most Recently Relevant to Health Maintenance Advance Directives For more information, please contact: [phone] * Full Code (Latest Code Status on File) Date Activated Date Inactivated Comments 12/28/2021 1:26 AM 12/31/2021 3:18 PM Care Teams Program Administrator Relationship Specialty Start Date End Date No, Physician PCP - General 12/27/21
[2025-01-22 03:09] LABS: Basophils Percent Auto 0.9 % (0.2-1.2); Eosinophils Absolute Auto 0.2 K/mm3 (0-0.3); Hematocrit 39.4 % (42.0-52.0); Hemoglobin 13.1 g/dL (14.0-18.0); Immature Granulocyte Absolute 0.01 K/mm3 (0.00-0.031); Immature Granulocyte Percent A 0.2 % (0-0.5); Lymphocytes Absolute Auto 1.46 K/mm3 (0.9-3.2); Lymphocytes Percent Auto 31.9 % (18.3-44.2); Mean Corpuscular HGB Conc 33.2 g/dl (32-36); Mean Corpuscular Hemoglobin 27.9 pg (26-34); Mean Platelet Volume 9.4 fl (7.4-10.4); Monocytes Absolute Auto 0.4 K/mm3 (0.1-0.6); Monocytes Percent Auto 8.1 % (2.6-8.5); Neutrophils Absolute Auto 2.5 K/mm3 (1.3-6.7); Neutrophils Percent Auto 53.9 % (45.5-73.1); Platelet Count Result 298 k/mm3 (150-375); Red Blood Count 4.69 M/mm3 (4.6-6.20); Red Cell Distribution Width 13.3 % (11.5-14.5); White Blood Count 4.6 K/mm3 (4.5-10.0)
[2025-01-22 03:19] LABS: Ethanol < 10 mg/dL (<10)
[2025-01-22 03:20] LABS: Alanine Aminotransferase 19 U/L (6-50); Albumin Level 4.6 g/dL (3.5-5.1); Alkaline Phosphatase 67 U/L (38-126); Anion Gap 12 mmol/L (4-12); Aspartate Amino Transferase 24 U/L (17-59); Bilirubin,Total 0.5 mg/dL (0.2-1.3); Blood Urea Nitrogen 12 mg/dL (9-20); Calcium 9.4 mg/dL (8.4-10.2); Carbon Dioxide 25 mmol/L (22-30); Chloride 103 mmol/L (98-107); Estimated CRCL calculation 90 ml/min; Estimated Glomerular Filt Rate > 60; Glucose 85 mg/dL (65-110); Lipase 330 U/L (23-300); Sodium 140 mmol/L (137-145)
[2025-01-22 03:34] LABS: Strep Group A RT-PCR NOT DETECTED (Negative)
[2025-01-22 03:45] LABS: Influenza A QL RT-PCR Negative (Negative); Influenza B QL RT-PCR Negative (Negative); RSV RNA, RT-PCR Negative (Negative); SARS-CoV-2 RNA PCR Negative (Negative)
[2025-01-22 04:00] LABS: Add Urine Microscopic? NO; Appearance Urine Clear (Clear); Bilirubin Urine Negative (Negative); Blood Urine Negative (Negative); Color Urine Yellow (Yellow); Glucose Urine UA Negative (Negative); Ketones Urine Negative (Negative); Leukocyte Esterase Ur Negative LEU/UL (Negative); Nitrate Urine Negative (Negative); Protein Urine Negative (Negative); Specific Grav Ur 1.017 (1.001-1.035); Urobilinogen Urine 0.2 mg/dL (<2.0); pH Urine 5.5 (5.0-9.0)
[2025-01-22 04:14] LABS: Barbiturate Screen Urine Negative (Negative); Benzodiazepines Screen Urine Negative (Negative)
[2025-01-22 04:19] LABS: Cannabinoid Screen Urine Positive (Negative); Cocaine Screen Urine Negative (Negative); Methadone Screen Urine Negative (Negative); Opiate Screen Urine Negative (Negative); Phencyclidine Screen Urine Negative (Negative)
[2025-01-22 04:37] VITALS: BP 135/89; PULSE 89; RESP 18; O2SAT 99
[2025-01-22 04:45] LABS: Amphetamine Screen Urine Positive (Negative)
[2025-01-22 05:49] VITALS: BP 133/84; PULSE 82; RESP 17; O2SAT 100
[2025-01-22 05:50] VITALS: BP 133/84; PULSE 82; RESP 17; O2SAT 100
== END 2025-01-22 05:53 | disposition home or self-care (01) ==
PROVIDERS: Emergency Provider Student in an Organized Health Care Education/Training Program
DX: R07.89 Other chest pain (principal); R07.0 Pain in throat; D64.9 Anemia, unspecified; F12.90 Cannabis use, unspecified, uncomplicated; F15.90 Other stimulant use, unspecified, uncomplicated; Z20.822 Contact with and (suspected) exposure to COVID-19
CPT/HCPCS: 36415; 70491; 71260; 80053; 80307; 81003; 82077; 83690; 85025; 87637; 87651; 93005; 99284; Q9967